=== PATIENT | male | born 1935 | race Caucasian/White ===

== ENCOUNTER 2016-10-07 17:01 | Emergency (ER) | payer MEDICARE, OTHER, BC ==
[~2016-10-07] VITALS: Ht 175.3 cm; Wt 115.0 kg
[2016-10-07 17:14] VITALS: BP 126/86; PULSE 70; RESP 16; TEMP 98; O2SAT 96
--- NOTE | 2016-10-07 17:28 | PD ---
HPI Chief Complaint: Laceration/Skin Injury Time Seen by Provider: 17:20 Travel History International Travel<30 days: No Contact w/Intl Traveler<30days: No Traveled to known affect area: No History of Present Illness HPI 81-year-old male presents for evaluation of skin wounds to the lateral left lower leg. Prior to arrival he walked via piece of wood that had some nails or screw sticking out and a scraped along his leg. He had some bleeding which has since resolved. He has mild discomfort associated with the wound. Last tetanus vaccination unknown. No other complaints. PFSH Social History Alcohol Use: Yes Tobacco Use: No Allergies-Medications (Allergen,Severity, Reaction): Coded Allergies: No Known Allergies (Unverified , 10/07/16) Review of Systems Musculoskeletal: No: Limited ROM, Pain Skin: Positive Other (positive for skin wounds, bleeding) Physical Exam Narrative GENERAL: Well-nourished male in no acute distress SKIN: Warm and dry. There are 2 superficial linear abrasions to the lateral left lower leg. The dermis is intact. No bleeding at this time. Extremities: As noted above. Normal gait. Data Data Last Documented VS Vital Signs Date Time Temp Pulse Resp B/P Pulse Ox O2 Delivery O2 Flow Rate FiO2 10/07/16 17:14 98.0 70 16 126/86 96 MDM Medical Decision Making Medical Screen Exam Complete: Yes Emergency Medical Condition: Yes Medical Record Reviewed: Yes Differential Diagnosis Abrasion, puncture wound, laceration Narrative Course The wounds are superficial, involving only the epidermis. Local wound care provided. Stable for discharge. Diagnosis Primary Impression: Abrasion Additional Instructions: Wash daily with soap and water and apply antibiotic cream and clean bandages. Return for any evidence of infection such as increasing redness around the wound , red streaks up the leg, fevers. Med/Other Pt SpecificInfo: Wound Care Disposition: DISCHARGE HOME Condition: Stable Robert Galvan Oct 07, 2016 17:28
[2016-10-07] MEDS ORDERED: TETANUS/DIPHTHERIA TOXOID ADULT 0.5 ML VIAL IM ONE (17:30)
[2016-10-07] MEDS ORDERED: OMEP10CA PO (17:31)
[2016-10-07] MEDS ORDERED: ATEN25TA PO (17:31)
== END 2016-10-07 17:53 | disposition home or self-care (01) ==
LOC: PHEFT 17:01
DX: S80.812A Abrasion, left lower leg, initial encounter (principal); W45.0XXA Nail entering through skin, initial encounter; Z23 Encounter for immunization
CPT/HCPCS: 90471; 90714

== ENCOUNTER 2016-10-25 11:28 | Emergency (ER) | payer MEDICARE, BC ==
[~2016-10-25] VITALS: Ht 175.3 cm; Wt 113.0 kg
[~2016-10-25 11:28] MED LIST: ATEN25TA PO; OMEP10CA PO
[2016-10-25 11:36] VITALS: BP 118/60; PULSE 61; RESP 16; TEMP 97.6; O2SAT 98
--- NOTE | 2016-10-25 11:44 | PD ---
HPI . leg infection Chief Complaint: Skin Problem Time Seen by Provider: 12:01 Travel History International Travel<30 days: No Contact w/Intl Traveler<30days: No Traveled to known affect area: No History of Present Illness HPI 81-year-old male with history of hypertension and GERD here with complaints of a left leg infection. Patient was previously seen on October 07 and told to follow general wound care practices of washing and dressing changes daily. Patient says he then started developing infection and took some leftover penicillin that he had at home. Patient was concerned as he had left knee replacement in January 2016 and did not want his hardware to become infected. He has since ran out of penicillin tells me that the infection is returning. He decided to come to the emergency room for further evaluation. Denies any fever or chills. He is accompanied by his . PFSH Past Medical History GERD: Yes Hypertension: Yes Social History Alcohol Use: Yes Tobacco Use: No Allergies-Medications (Allergen,Severity, Reaction): Coded Allergies: No Known Allergies (Unverified , 10/25/16) Reported Meds & Prescriptions Reported Meds & Active Scripts Active Reported Omeprazole 10 Mg Cap 10 Mg PO DAILY Atenolol 25 Mg Tab 25 Mg PO DAILY Review of Systems General / Constitutional: No: Fever Eyes: No: Visual changes HENT: No: Headaches Cardiovascular: No: Chest Pain or Discomfort Respiratory: No: Shortness of Breath Gastrointestinal: No: Abdominal Pain Genitourinary: No: Dysuria Musculoskeletal: No: Pain Skin: Positive Other (left leg cellulitis), No Rash Neurologic: No: Weakness Psychiatric: No: Depression Endocrine: No: Polydipsia Hematologic/Lymphatic: No: Easy Bruising Physical Exam Narrative GENERAL: AAO x 3, no acute distress, Well-nourished, well-developed patient. SKIN: Warm and dry. No visible rashes or bruising. left lateral mcmahon with healing skin abrasion with some surrounding erythema and minimally warm to touch HEAD: Normocephalic and atraumatic. EYES: No scleral icterus. No injection or drainage. ENT: No nasal drainage noted. Mucous membranes pink. Airway patent. NECK: Supple, trachea midline. No JVD. CARDIOVASCULAR: Regular rate and rhythm without murmurs, gallops, or rubs. RESPIRATORY: Breath sounds equal bilaterally. No accessory muscle use. No rhonchi or rales. GASTROINTESTINAL: Abdomen soft, non-tender, nondistended. EXTREMITIES: No cyanosis, mild trace edema L BACK: Nontender without obvious deformity. No CVA tenderness. PSYCH: AAO x 3, normal affect. Data Data Last Documented VS Vital Signs Date Time Temp Pulse Resp B/P Pulse Ox O2 Delivery O2 Flow Rate FiO2 10/25/16 11:36 97.6 61 16 118/60 98 MDM Medical Decision Making Medical Screen Exam Complete: Yes Emergency Medical Condition: Yes Medical Record Reviewed: Yes Differential Diagnosis cellulitis, healing skin abrasion, less likely sepsis Narrative Course 81-year-old male with history of hypertension and GERD here with complaints of a left leg infection. Patient was previously seen on October 07 and told to follow general wound care practices of washing and dressing changes daily. Patient says he then started developing infection and took some leftover penicillin that he had at home. Patient was concerned as he had left knee replacement in January 2016 and did not want his hardware to become infected. He has since ran out of penicillin tells me that the infection is returning. He decided to come to the emergency room for further evaluation. Denies any fever or chills. He is accompanied by his . Patient seen and examined. He has very minimal erythema and temperature variation over the left lower extremity wound. I will go ahead and treat with Bactrim and Bactroban. Discussed with patient. Advised to return to the emergency room if symptoms worsen. Patient verbalized understanding of instructions, questions were answered, and thanked me for their care. I advised them if their condition worsens, please return to the nearest emergency room for further care. Diagnosis Primary Impression: Left leg cellulitis Patient Instructions: Cellulitis (ED), General Instructions Additional Instructions: [place] for worsening signs of infection which include increased redness, increased warmth, purulent drainage, increased swelling or streaking. If you see any signs of worsening infection, return to the nearest emergency department or follow-up with primary care provider. Please return to emergency department if your symptoms return or worsen. Follow up with your primary care provider. Take medications as prescribed. Med/Other Pt SpecificInfo: Prescription(s) given Disposition: DISCHARGE HOME Condition: Stable Karo Mata Oct 25, 2016 11:44
[2016-10-25] MEDS ORDERED: BACT2OIN TOPICAL (12:08)
[2016-10-25] MEDS ORDERED: BACT800T5 PO (12:08)
== END 2016-10-25 12:52 | disposition home or self-care (01) ==
LOC: PHEFT 11:28
DX: L03.116 Cellulitis of left lower limb (principal)
CPT/HCPCS: 99284

== ENCOUNTER 2016-11-12 13:26 | Emergency (ER) | payer MEDICARE, BC, OTHER ==
[~2016-11-12 13:26] MED LIST changes: +BACT2OIN TOPICAL; +BACT800T5 PO
[2016-11-12 13:33] VITALS: BP 123/74; PULSE 66; RESP 16; TEMP 97.6; O2SAT 96
[2016-11-12] MEDS ORDERED: CLINDAMYCIN INJ 900 MG in SODIUM CHLORIDE 0.9% INJ 100 ML IV ONE (14:00)
[2016-11-12 14:21] LABS: BASOPHIL % 0.5 % (0.0-2.0); EOSINOPHIL # 0.2 TH/MM3 (0-0.4); EOSINOPHIL % 2.9 % (0.0-4.0); HEMO FLAGS DIFF FINAL; LYMPH % 25.1 % (9.0-44.0); LYMPHOCYTE # 1.6 TH/MM3 (1.0-4.8); MEAN CELL VOLUME 90.9 FL (80.0-100.0); MEAN CORPUSCULAR HEMOGLOBIN 30.1 PG (27.0-34.0); MEAN CORPUSCULAR HGB CONC 33.1 % (32.0-36.0); NEUT % 64.5 % (16.0-70.0); PLATELET COUNT 186 TH/MM3 (150-450); RED BLOOD COUNT 4.62 MIL/MM3 (4.50-5.90); RED CELL DISTRIBUTION WIDTH 13.1 % (11.6-17.2); WHITE BLOOD COUNT 6.2 TH/MM3 (4.0-11.0)
--- NOTE | 2016-11-12 14:35 | RADHPO ---
EXAM DATE/TIME: 11/12/2016 14:05 [facility] COMPARISON: No previous studies available for comparison. INDICATIONS : Cut lower leg October 07. Third visit. Patient still complaining of pain. MEDICAL HISTORY : Hypertension. Gastroesophageal reflux disease. SURGICAL HISTORY : Total knee replacement, left. Total knee replacement, right. ENCOUNTER: [facility] ACUITY: 2 months PAIN SCORE: 7/10 LOCATION: Left lateral Tibia Fibula FINDINGS: Left total knee arthroplasty is noted. No soft tissue emphysema, fracture or dislocation. No perioste al reaction. CONCLUSION: No acute disease. Fran Metz MD on November 12, 2016 at 14:33 Board Certified Radiologist. This report was verified electronically.
[2016-11-12 14:41] LABS: POTASSIUM 4.5 MEQ/L (3.5-5.1)
[2016-11-12 14:45] LABS: BICARBONATE 27.1 MEQ/L (21.0-32.0)
[2016-11-12 14:46] VITALS: BP 120/64; PULSE 57; RESP 18; O2SAT 97
--- NOTE | 2016-11-12 14:52 | RADHPO ---
EXAM DATE/TIME: 11/12/2016 14:29 [facility] COMPARISON: No previous studies available for comparison. INDICATIONS : Left lateral lower leg pain from injury October 07, 2016. MEDICAL HISTORY : Gastroesophageal reflux disease. SURGICAL HISTORY : Total knee replacement, left. Total knee replacement, right. ENCOUNTER: Initial ACUITY: 2 months PAIN SCORE: 7/10 LOCATION: Left leg. TECHNIQUE: Venous ultrasound of the leg was performed from the inguinal ligament to the proximal calf. Real-penelope e, color Doppler and spectral tracing, compression and augmentation techniques were used. FINDINGS: There is normal compressibility of the deep venous system from the inguinal region to the proximal ca lf. No echogenic clot is seen in the lumen of the common femoral, femoral, popliteal, and posterior tibial veins. There is a normal response of the venous system to proximal and distal augmentation an d respiration. CONCLUSION: Normal examination. Fran Metz MD on November 12, 2016 at 14:50 Board Certified Radiologist. This report was verified electronically.
[2016-11-12] MEDS ORDERED: CLIN1CAP5 PO (15:18)
--- NOTE | 2016-11-12 15:19 | PD ---
HPI Chief Complaint: Pain: Acute or Chronic Time Seen by Provider: 13:38 Travel History International Travel<30 days: No Contact w/Intl Traveler<30days: No Traveled to known affect area: No History of Present Illness HPI 81-year-old male arrives to the ER with pain in the lower left leg. About 6 weeks ago he cut it on a nail and some drywall in his garage. He has been here 2 times since the initial visit. He reports severe pain overlying the area of dried blood and scabbing. He finished a course of Bactrim. His main concern is the pain seems to be traveling approximately into the region of the left total knee arthroplasty. He's had no fever. He said no shortness of breath. Pain is worse with pressure. PFSH Past Medical History Diminished Hearing: Yes GERD: Yes Hypertension: Yes Immunizations Current: Yes Tetanus Vaccination: < 5 Years Influenza Vaccination: Yes Social History Alcohol Use: Yes (WINE DAILY) Tobacco Use: No (QUIT 1982) Substance Use: No Allergies-Medications (Allergen,Severity, Reaction): Coded Allergies: No Known Allergies (Unverified , 11/12/16) Reported Meds & Prescriptions Reported Meds & Active Scripts Active Clindamycin (Clindamycin HCl) 150 Mg Cap 450 Mg PO Q8HR 10 Days Reported Omeprazole 10 Mg Cap 10 Mg PO DAILY Atenolol 25 Mg Tab 25 Mg PO DAILY Review of Systems Except as stated in HPI: all other systems reviewed are Neg General / Constitutional: No: Fever Physical Exam Narrative GENERAL: 81 yo M, WNWD SKIN: Warm and dry. Approx 5cm x 1cm curvilinear laceration LLE minimally tender , trace adjacent erythema. HEAD: Atraumatic. Normocephalic. EYES: Pupils equal and round. No scleral icterus. No injection or drainage. ENT: No nasal bleeding or discharge. Mucous membranes pink and moist. NECK: Trachea midline. No JVD. CARDIOVASCULAR: Regular rate and rhythm. RESPIRATORY: No accessory muscle use. Clear to auscultation. Breath sounds equal bilaterally. GASTROINTESTINAL: Abdomen soft, non-tender, nondistended. Hepatic and splenic margins not palpable. MUSCULOSKELETAL: Extremities without clubbing, cyanosis, or edema. No obvious deformities. NEUROLOGICAL: Awake and alert. No obvious cranial nerve deficits. Motor grossly within normal limits. Five out of 5 muscle strength in the arms and legs. Normal speech. PSYCHIATRIC: Appropriate mood and affect; insight and judgment normal. Data Data Last Documented VS Vital Signs Date Time Temp Pulse Resp B/P Pulse Ox O2 Delivery O2 Flow Rate FiO2 11/12/16 14:46 57 18 120/64 97 Room Air 11/12/16 13:33 97.6 VS reviewed Orders Basic Metabolic Panel (Bmp) (11/12/16 13:52) Complete Blood Count With Diff (11/12/16 13:52) Wound Culture And Gram Stain (11/12/16 13:52) Iv Access Insert/Monitor (11/12/16 13:52) Clindamycin Inj (Cleocin Inj) (11/12/16 14:00) Us Leg Venous Doppler (11/12/16 ) Tibia/Fibula (Ap/Lat) (11/12/16 ) Labs Laboratory Tests Test 11/12/16 14:05 White Blood Count 6.2 TH/MM3 Red Blood Count 4.62 MIL/MM3 Hemoglobin 13.9 GM/DL Hematocrit 42.0 % Mean Corpuscular Volume 90.9 FL Mean Corpuscular Hemoglobin 30.1 PG Mean Corpuscular Hemoglobin 33.1 % Concent Red Cell Distribution Width 13.1 % Platelet Count 186 TH/MM3 Mean Platelet Volume 8.9 FL Neutrophils (%) (Auto) 64.5 % Lymphocytes (%) (Auto) 25.1 % Monocytes (%) (Auto) 7.0 % Eosinophils (%) (Auto) 2.9 % Basophils (%) (Auto) 0.5 % Neutrophils # (Auto) 4.0 TH/MM3 Lymphocytes # (Auto) 1.6 TH/MM3 Monocytes # (Auto) 0.4 TH/MM3 Eosinophils # (Auto) 0.2 TH/MM3 Basophils # (Auto) 0.0 TH/MM3 CBC Comment DIFF FINAL Differential Comment Sodium Level 145 MEQ/L Potassium Level 4.5 MEQ/L Chloride Level 111 MEQ/L Carbon Dioxide Level 27.1 MEQ/L Anion Gap 7 MEQ/L Blood Urea Nitrogen 20 MG/DL Creatinine 1.20 MG/DL Estimat Glomerular Filtration 58 ML/MIN Rate Random Glucose 85 MG/DL Calcium Level 8.8 MG/DL [facility] Medical Decision Making Medical Screen Exam Complete: Yes Emergency Medical Condition: Yes Medical Record Reviewed: Yes Differential Diagnosis Cellulitis, DVT, foreign body, sepsis Narrative Course CBC & BMP Diagram 11/12/16 14:05 Last 24 hours Impressions Tibia/Fibula X-Ray 11/12/16 0000 Signed Impressions: Service Date/Time: Saturday, November 12, 2016 14:05 - CONCLUSION: No acute disease. Fran Metz MD Lower Extremity Ultrasound 11/12/16 0000 Signed Impressions: Service Date/Time: Saturday, November 12, 2016 14:29 - CONCLUSION: Normal examination. Fran Metz MD The patient is resting comfortably and feels better, is alert and in no distress. The patients results and examination findings were discussed. The repeat examination is unremarkable and benign. The history, exam, diagnostic testing, and current condition do not suggest any significant pathology to warrant further testing, continued ED treatment, admission, or surgical evaluation at this point. The vital signs have been stable. The patient does not have uncontrollable pain, intractable vomiting, or other significant symptoms. The patient's condition is stable and appropriate for discharge. The patient will pursue further outpatient evaluation with a primary care physician or other designated or consulting physician as indicated in the discharge instructions. The patient expressed understanding and was agreeable with this plan. Diagnosis Primary Impression: Left leg cellulitis Referrals: Cherry Trimble MD 2 days Additional Instructions: You have a choice when it comes to health care, and we are glad that you chose [facility]. Hopefully, we have met your expectations on today's visit. You are welcome to return to [facility] at any time, as we are committed to meeting the health care needs of our community. Med/Other Pt SpecificInfo: Prescription(s) given Scripts Clindamycin 150 Mg [id number] Mg PO Q8HR 10 Days Ref 0 Prov:Thony Burton MD 11/12/16 Disposition: 01 DISCHARGE HOME Condition: Stable Thony Burton MD Nov 12, 2016 15:19
== END 2016-11-12 15:44 | disposition home or self-care (01) ==
LOC: PHED 13:26
DX: L03.116 Cellulitis of left lower limb (principal); M79.662 Pain in left lower leg; S81.812D Laceration without foreign body, left lower leg, subsequent encounter; I10 Essential (primary) hypertension; H91.90 Unspecified hearing loss, unspecified ear; Z96.652 Presence of left artificial knee joint; Z87.19 Personal history of other diseases of the digestive system; W45.0XXD Nail entering through skin, subsequent encounter
CPT/HCPCS: 73590; 80048; 85025; 86403; 87070; 87205; 93971; 96365

== ENCOUNTER 2017-09-04 08:11 | Inpatient (IN) | payer MEDICARE, BC, OTHER ==
[2017-09-04] VITALS (16 sets, daily range): BP systolic 102–180; BP diastolic 53–111; PULSE 47–76; RESP 20–26; TEMP 98.2–98.8; O2SAT 96–100
[~2017-09-04] VITALS: Ht 175.3 cm; Wt 113.0 kg
[~2017-09-04 08:11] MED LIST changes: -BACT2OIN TOPICAL; -BACT800T5 PO; +CLIN150C14 PO
[2017-09-04] MEDS ORDERED: HEPARIN SODIUM - IV 10,000 UNITS/10 ML VIAL IV PUSH STA (08:19)
[2017-09-04] MEDS ORDERED: SODIUM CHLOR 0.9% 1000 ML INJ 1,000 ML IV ONE (08:19)
[2017-09-04] MEDS ORDERED: NITROGLYCERIN 0.4 MG SL 25 TABS/BTL SL STA (08:19)
[2017-09-04] MEDS ORDERED: ASPIRIN 81 MG CHEW TAB PO STA (08:19)
[2017-09-04] MEDS: SODIUM CHLOR 0.9% 1000 ML INJ 1,000 ML IV SCH ×2 (08:23→13:48)
[2017-09-04] MEDS ORDERED: MIDAZOLAM HCL 2 MG/2 ML VIAL ONE (08:28)
[2017-09-04] MEDS ORDERED: HEPARIN-NS/PF INJ 1,000 ML ONE (08:28)
[2017-09-04] MEDS ORDERED: MORPHINE SULFATE 2 MG/ML INJ IV PUSH ONE (08:30)
[2017-09-04] MEDS ORDERED: SODIUM CHLORIDE 0.9% FLUSH 10 ML FLUSH IV FLUSH PRN (08:30)
[2017-09-04] MEDS ORDERED: NITROGLYCERIN-D5W 50 MG/250 ML 250 ML IV PRN (08:30)
[2017-09-04] MEDS ORDERED: FAMOTIDINE 20 MG/2 ML VIAL IV PUSH ONE (08:30)
[2017-09-04] MEDS ORDERED: ONDANSETRON HCL 4 MG/2 ML VIAL IVP ONE (08:30)
[2017-09-04] MEDS ORDERED: SODIUM CHLORIDE 0.9% FLUSH 10 ML FLUSH IVF PRN (08:30)
--- NOTE | 2017-09-04 08:35 | PD ---
HPI Chief Complaint: Cardiac Complaint Time Seen by Provider: 08:17 Travel History International Travel<30 days: No Contact w/Intl Traveler<30days: No Traveled to known affect area: No History of Present Illness HPI 82-year-old male complains of chest pain. Patient states that he started having epigastric and subxiphoid chest pain around an hour and a half prior to arrival. Patient states the pain severe pain sharp pain and pressure pain started around epigastric area with radiation to the substernal area. Patient complained of nausea and diaphoresis with the pain. Patient denies any coughing congestion fever chills. EMS was called. Patient had a short period of bradycardia and hypotension. Patient was transferred to the ED for evaluation. Upon arrival patient awake and alert oriented 3. Complaining of severe substernal and epigastric pain. Patient has history hypertension and pancreatitis. Patient denies history diabetes or hyperlipidemia. Patient states that he had cardiac catheter done several years in the past which shows some minor blockage. Patient is a nonsmoker. On a scale of 1-10 the pain is a 10. PFSH Past Medical History Diminished Hearing: Yes GERD: Yes Hypertension: Yes Immunizations Current: Yes ?: Not Past Surgical History Other Surgery: Yes (PANCREAS SX) Social History Alcohol Use: Yes ([facility]) Tobacco Use: No (QUIT 1982) Substance Use: No Allergies-Medications (Allergen,Severity, Reaction): Coded Allergies: No Known Allergies (Unverified , 11/12/16) Reported Meds & Prescriptions Reported Meds & Active Scripts Active Clindamycin (Clindamycin HCl) 150 Mg Cap 450 Mg PO Q8HR 10 Days Reported Omeprazole 10 Mg Cap 10 Mg PO DAILY Atenolol 25 Mg Tab 25 Mg PO DAILY Review of Systems General / Constitutional: No: Fever Eyes: No: Visual changes HENT: No: Headaches Cardiovascular: Positive: Chest Pain or Discomfort Respiratory: No: Shortness of Breath Gastrointestinal: Positive: Abdominal Pain Genitourinary: No: Dysuria Musculoskeletal: No: Pain Skin: No Rash Neurologic: No: Weakness Psychiatric: No: Depression Endocrine: No: Polydipsia Hematologic/Lymphatic: No: Easy Bruising Physical Exam Narrative GENERAL: Well-nourished, well-developed patient. SKIN: Focused skin assessment warm/dry. HEAD: Normocephalic. EYES: No scleral icterus. No injection or drainage. NECK: Supple, trachea midline. No JVD or lymphadenopathy. CARDIOVASCULAR: Regular rate and rhythm without murmurs, gallops, or rubs. RESPIRATORY: Breath sounds equal bilaterally. No accessory muscle use. GASTROINTESTINAL: Abdomen soft, nondistended. Mild tenderness on palpation epigastric area. No rebound tenderness. No mass. MUSCULOSKELETAL: No cyanosis, or edema. BACK: Nontender without obvious deformity. No CVA tenderness. Neurologic exam normal. Data Data Last Documented VS Vital Signs Date Time Temp Pulse Resp B/P (MAP) Pulse Ox O2 Delivery O2 Flow Rate FiO2 09/04/17 08:20 22 99 Nasal Cannula 2.00 09/04/17 08:14 72 180/111 (134) Orders Orders Complete Blood Count With Diff (09/04/17:17) Comprehensive Metabolic Panel (09/04/17 08:17) Lipase (09/04/17 08:17) Prothrombin Time / Inr (Pt) (09/04/17 08:17) Act Partial Throm Time (Ptt) (09/04/17 08:17) Urinalysis - C+S If Indicated (09/04/17 08:17) Iv Access Insert/Monitor (09/04/17 08:17) Ecg Monitoring (09/04/17 08:17) Oximetry (09/04/17 08:17) Ondansetron Inj (Zofran Inj) (09/04/17 08:30) Sodium Chlor 0.9% 1000 Ml Inj (Ns 1000 M (09/04/17 08:17) Sodium Chloride 0.9% Flush (Ns Flush) (09/04/17 08:30) Electrocardiogram (09/04/17 08:17) Famotidine Inj (Pepcid Inj) (09/04/17 08:30) Morphine Inj (Morphine Inj) (09/04/17 08:30) Troponin I (09/04/17 08:19) Ckmb (Isoenzyme) Profile (09/04/17 08:19) I-Stat Profile (09/04/17 08:19) I-Stat Creatinine (09/04/17:19) Calcium (09/04/17 08:19) Magnesium (Mg) (09/04/17 08:19) Chest, Single Ap (09/04/17 08:19) Oxygen Administration (09/04/17 08:19) Sodium Chlor 0.9% 1000 Ml Inj (Ns 1000 M (09/04/17 08:19) Sodium Chloride 0.9% Flush (Ns Flush) (09/04/17 08:30) Aspirin Chew (Aspirin Chew) (09/04/17 08:19) Nitroglycerin Sl (Nitrostat Sl) (09/04/17 08:19) Nitroglycerin-D5w 50 Mg/250 Ml (Nitrogly (09/04/17 08:30) Heparin Inj (Heparin Inj) (09/04/17 08:19) Cardiac Catheterization (09/04/17 ) MDM Medical Decision Making Medical Screen Exam Complete: Yes Emergency Medical Condition: Yes Differential Diagnosis Differential diagnosis including acute NC, gastritis, pancreatitis, esophagitis , angina, PE, pneumothorax, aortic dissection. Narrative Course 82-year-old male with severe epigastric and substernal chest pain. Patient has a transient episode of hypotension and bradycardia. Vital signs stable now. EKG showed ST elevation in inferior leads with T-wave inversion on anterior leads. STEMI alert was called. I spoke with renal dialysis rn . Patient was given heparin bolus, aspirin, nitroglycerin, and transferred emergently to Historical Records Administrator. Diagnosis Primary Impression: STEMI (ST elevation myocardial infarction) Qualified Codes: I21.11 - ST elevation (STEMI) myocardial infarction involving right coronary artery Admitting Information Admitting Physician Requests: Admit Arnold Altman MD Sep 04, 2017 08:35
--- NOTE | 2017-09-04 08:44 | RADRPT ---
EXAM DATE/TIME: 09/04/2017 08:24 [facility] COMPARISON: No previous studies available for comparison. INDICATIONS : Chest pains, radiating into back, jaw, shoulder. MEDICAL HISTORY : None. SURGICAL HISTORY : None. ENCOUNTER: Initial ACUITY: 1 day PAIN SCORE: 10/10 LOCATION: Bilateral chest FINDINGS: A single view of the chest demonstrates the lungs to be symmetrically aerated without evidence of mas s, infiltrate or effusion. The cardiomediastinal contours are unremarkable. Osseous structures are intact. CONCLUSION: 1. No acute cardiopulmonary disease. Santosh Boothe MD on September 04, 2017 at 8:39 Board Certified Radiologist. This report was verified electronically.
[2017-09-04 08:46] LABS: AUTOMATED NEUTROPHIL # 5.2 TH/MM3 (1.8-7.7); BASOPHIL # 0.1 TH/MM3 (0-0.2); BASOPHIL % 0.6 % (0.0-2.0); EOSINOPHIL # 0.2 TH/MM3 (0-0.4); EOSINOPHIL % 2.4 % (0.0-4.0); HEMOGLOBIN 15.3 GM/DL (13.0-17.0); LYMPH % 36.7 % (9.0-44.0); LYMPHOCYTE # 3.5 TH/MM3 (1.0-4.8); MEAN CELL VOLUME 91.5 FL (80.0-100.0); MEAN CORPUSCULAR HEMOGLOBIN 31.7 PG (27.0-34.0); MEAN CORPUSCULAR HGB CONC 34.6 % (32.0-36.0); MEAN PLATELET VOLUME 8.9 FL (7.0-11.0); MONO % 6.4 % (0.0-8.0); MONOCYTE # 0.6 TH/MM3 (0-0.9); NEUT % 53.9 % (16.0-70.0); PLATELET COUNT 207 TH/MM3 (150-450); RED BLOOD COUNT 4.82 MIL/MM3 (4.50-5.90); WHITE BLOOD COUNT 9.6 TH/MM3 (4.0-11.0)
[2017-09-04] MEDS ORDERED: BIVALIRUDIN 250 MG VIAL ONE (08:53)
[2017-09-04 08:54] LABS: PROTHROMBIN TIME - PATIENT 10.1 SEC (9.8-11.6)
[2017-09-04 09:08] LABS: ALT (GPT) 26 U/L (12-78)
[2017-09-04 09:10] LABS: ALBUMIN 3.5 GM/DL (3.4-5.0); ALKALINE PHOSPHATASE 69 U/L (45-117); AST (GOT) 24 U/L (15-37); BICARBONATE 22.3 MEQ/L (21.0-32.0); BLOOD UREA NITROGEN 23 MG/DL (7-18); CALCIUM 9.6 MG/DL (8.5-10.1); CHLORIDE 108 MEQ/L (98-107); CREATININE 1.54 MG/DL (0.60-1.30); GLOMERULAR FILTRATION RATE 44 ML/MIN (>89); GLUCOSE,RANDOM 120 MG/DL (74-106); SODIUM (NA) 138 MEQ/L (136-145); TOTAL BILIRUBIN ADULT 0.3 MG/DL (0.2-1.0); TOTAL PROTEIN 6.8 GM/DL (6.4-8.2)
[2017-09-04 09:14] LABS: TROPONIN I LESS THAN 0.02 NG/ML (0.02-0.05)
[2017-09-04 09:18] LABS: MAGNESIUM 1.8 MG/DL (1.5-2.5)
[2017-09-04] MEDS ORDERED: BIVALIRUDIN INJ 250 MG in SODIUM CHLORIDE 0.9% INJ 50 ML IV SCH (09:28)
[2017-09-04] MEDS ORDERED: NITROGLYCERIN 400 MCG/SPRAY 4.9 GM BOTTLE SL ONE (09:30)
[2017-09-04] MEDS ORDERED: LIDOCAINE 2% JELLY 30 ML TUBE TOP PRN (09:30)
[2017-09-04] MEDS ORDERED: oxyCODONE/ACETAMINOPHEN 10 MG/325 MG TAB PO PRN (09:30)
[2017-09-04] MEDS ORDERED: MORPHINE SULFATE 4 MG/ML INJ IV PUSH PRN (09:30)
[2017-09-04] MEDS ORDERED: BACITRACIN OINT 0.9 GM PKT TOP ONE (09:30)
[2017-09-04] MEDS ORDERED: MISC INFORMATION XX ONE (09:30)
[2017-09-04] MEDS ORDERED: CLOPIDOGREL 300 MG TAB ONE (09:30)
[2017-09-04] MEDS ORDERED: SODIUM CHLOR 0.9% 1000 ML INJ 1,000 ML IV SCH (09:40)
[2017-09-04] MEDS ORDERED: cloNIDine HCL 0.1 MG TAB PO PRN (09:45)
--- NOTE | 2017-09-04 09:46 | CATHPROC ---
[employer] HIS Report Study Information Study Number Admission Scheduled Start Study Start [id number] Sep 04 2017 8:11AM 09/04/2017 Sep 04 2017 8:31AM [place] [facility] Cardiac Catheterization Admit Source Facility Department Emergency department [facility] - Mortuary Operations Manager Physician and Clinical Staff Initial Esdras Hartmann Agricultural Engineering Technologist Martinez Call,MIKA Recorder Brooke Harvey,RT(R) (BS) Scrub Robbi Sheridan RCIS(BS) Procedures Performed Procedure Location (Site) Vessel Name Coronary Angiograms LCA Left Coronary Coronary Angiograms RCA Right Coronary PTCA CIRC Prox CIRC PTCA OM1 Prox CIRC Stent CIRC Prox CIRC Wire insertion Radial (right) Radial Art. Equipment Time Cut Out And Marking Machine Operator Description Size Mfg Part Number Used/Scraped COPILOT VALVE, BLEEDBACK [id number] 08:49 [employer] Used CONTROL *[id number] TRANSDUCER, TRUWAVE [id number] 08:49 MARQUEZ LUCERO * Used W/STOCKCOCK *[id number] *[id number] *[id number] *[id number] *[id number] *[id number] 08:49 [employer] INDUSTRIES PACK, CCL CUSTOM * Used *[id number] 08:49 [employer] PACER PEN, SKIN DUAL W/ RULER * Used *[id number] 09:07 MEDTRON[employer] BALLOON, 2.0 X 10MM EUPHORA 10MM Used *[id number] 08:54 [employer]TRON[employer] BALLOON, 2.5 X 12MM EUPHORA 12MM Used *[id number] 09:09 MEDTRONIC STENT, 2.5 18 INTEGRITY 2.5 18 Used *[id number] 09:01 [facility] MEDICAL 30 PATRICE INDEFLATOR Used *[id number] BAND, RADIAL COMPRESSION TR [id number] 09:25 [facility] MEDICAL 29CM Used LARGE 29 *[id number] 08:49 [facility] MEDICAL SHEATH, FR6.5 PRELUDE 11CM FR 6.5 038ACT Used *[id number] 08:49 [employer] WIRE, 3MMJ .035 180CM 180CM Used *[id number] 08:49 [employer]AM[employer] MANIFOLD, 4 PORT * Used *[id number] 08:49 [employer] OMNIPAQUE, 350 MG, 150ML 150ML [id number] Used [id number] 08:49 [employer] BLANKET,WARM AIR CCL * Used *[id number] WIRE, RUNTHROUGH NS FLOPPY 08:51 [employer] 180CM Used .014 180CM *[id number] WIRE, RUNTHROUGH NS FLOPPY 09:03 [employer] 180CM Used .014 180CM *[id number] Equipment Model, Serial, Lot Number and Expiration Data Description Model Number Serial Number Lot Number Expiration Date STENT, 2.5 18 INTEGRITY [id number] 01-16-2019 History: Current Medications Medication Dosage/Unit Route Frequency Last Date/Time Taken ASA HEPARIN History: Allergies Allergy Reaction No Known Allergies History: Risk Factors Family History of Hypertension Dyslipidemia Previous ME Previous Heart Failure Premature CAD No No No No No Prior Valve Prior PCI Prior CABG Surgery No No No Cerebrovascular Peripheral Artery Chronic Lung On Dialysis Diabetes Disease Disease Disease No No No No No History: Symptoms/Diagnosis Selection Items Chest pain History: Stress Tests Stress or Imaging Studies Performed No History: Other Current Smoker Method Quit Packs a Day Years Used Pack Years No Cigarettes 25 Years Ago 1 30 30 Labs Hgb (g/dl) Hct (%) RBC (MIL/MM3) WBC (l/cumm) Platelets (thousands) 11.60-17.00 35.00-51.00 4.00-5.90 4.00-11.00 150.00-450.00 15.3 44 4.8 9.6 207 Glucose (mg/dl) BUN (mg/dl) Creatinine (mg/dl) BUN:Creatinine (1:x) 74.00-106.00 7.00-18.00 0.50-1.30 10.00-20.00 120 29 1.5 19.3 Na (meq/l) K (meq/l) Cl (meq/l) 136.00-145.00 3.50-5.10 98.00-107.00 141 4.5 106 INR (PTT:PT) 0.90-1.10 1 Medication Medication Total Dose (Bolus/Oral) Medication Total Dosage/Unit 1% XYLOCAINE 1 mL ANGIOMAX BOLUS 16.8 mL FENTANYL 50 mcg NITROGLYCERIN S/L 0.4 mg NTG (IC) 200 mcg OXYGEN 2 l/min PLAVIX 600 mg VERSED 2 mg Medications (Bolus/Oral) Medication Time Given Dosage/Unit Administered By Reason 1% XYLOCAINE 09/04/2017 8:48:19 AM 1 mL Esdras Serna 1 mL 1% XYLOCAINE given in lab by Esdras Serna in Right Radial via Subcutaneous. VERSED 09/04/2017 8:48:34 AM 1 mg Esdras Serna 1 mg VERSED given in lab by Esdras Serna via Peripheral IV. FENTANYL 09/04/2017 8:48:34 AM 50 mcg Esdras Serna 50 mcg FENTANYL given in lab by Esdras Serna via Peripheral IV. ANGIOMAX BOLUS 09/04/2017 8:55:52 AM 16.8 mL Martinez Call 16.8 mL ANGIOMAX BOLUS given in lab by Martinez Call RN in Left Forearm via Peripheral IV. OXYGEN 09/04/2017 9:02:35 AM 2 l/min Martinez Call 2 l/min OXYGEN given in lab by Martinez Call RN via Nasal. NTG (IC) 09/04/2017 9:14:51 AM 200 mcg Esdras Serna 200 mcg NTG (IC) given in lab by Esdras Serna in Right Radial via Intra-coronary. VERSED 09/04/2017 9:25:27 AM 1 mg Martinez Call 1 mg VERSED given in lab by Martinez Call RN in Left Forearm via Peripheral IV. NITROGLYCERIN S/L 09/04/2017 9:32:23 AM 0.4 mg Esdras Serna 0.4 mg NITROGLYCERIN S/L given in lab by Esdras Serna via Sublingual. PLAVIX 09/04/2017 9:43:11 AM 600 mg Martinez Call 600 mg PLAVIX given in lab by Martinez Call RN via Oral. Medication (Drip) Medication Time Given Dosage/Unit Concentration/Unit Diluent (ml) Solution ANGIOMAX DRIP 09/04/2017 8:57:43 AM 1.75 mg/kg/hr 250 mg 50 NaCl .9 1.75 mg/kg/hr ANGIOMAX DRIP given in lab by Martinez Call RN in Left Forearm via Peripheral IV. Pum p/Drip Flow = 39.2 ml/hr using NaCl .9 with a concentration of 250 mg in 50 ml. IV Solutions 09/04/2017 8:46:01 AM 50 mL (IV) 1000 NaCl .9 Patient arrived on IV Solutions in Left Forearm via Peripheral IV. Pump/Drip Flow using NaCl .9. Initial Case Assessment Chronological Log Time Study Chronological Log 8:25:53 Emergency Room notified that Mortuary Operations Manager is ready. 8:36:53 Patient arrived via Bed. 8:36:54 Patient Name, D.O.B, / Armband Verified By R.N. 8:36:55 Consent signed by the physician and the patient and verified by the Mortuary Operations Manager staff. 8:36:56 Pre-op and post- op instructions given; patient acknowledges understanding of instructions. Vitals capture started with the following parameters, Patient=Adult, Interval=5 min, Initial Pre emrzl=155 mmHg, 8:40:27 Deflation Rate=5 mmHg, Cuff placed on Left Arm 8:42:08 MD arrived. 8:42:46 HR=72 bpm, KOFQ=246/118 mmhg, Resp=16 B/min, Pain=8, Trell=10, Headley=2 8:45:46 Verbal Stimulation=2 Physical Stimulation=2 Airway=2 Respiration=2 TOTAL=8. (0=absent, 1=orosco ited, 2=present) 8:45:47 Presedation assessment performed by Mortuary Operations Manager RN. 8:45:49 Allens test performed on the right radial and ulnar artery. 8:45:57 Patient Warmer Placed on the Table. 8:45:58 Disposable Defibrillator Pads Placed On Patient. 8:45:59 Sophia Prominences Protected 8:46:00 A # 18 IV was noted in the Forearm (right). Grade = 0 8:46:00 A # 18 IV was noted in the Forearm (left). Grade = 0 8:46:01 Patient arrived on IV Solutions in Left Forearm via Peripheral IV. Pump/Drip Flow using NaCl .9. 8:46:02 History and physical on the chart or being dictated. 8:46:04 Assessment: Initial Case 8:46:15 HR=70 bpm, QGMW=503/130 mmhg, SpO2=94.0 %, Resp=21 B/min Time Out. Correct patient, correct procedure, correct physician, power injector not loaded with contrast with surgical 8:46:45 team present. Time Out Concurred by MD and individual staff in procedure. 8:46:53 Case Start 8:47:36 Reference ECG taken 8:48:19 1 mL 1% XYLOCAINE given in lab by Esdras Serna in Right Radial via Subcutaneous. 8:48:34 1 mg VERSED given in lab by Esdras Serna via Peripheral IV. 8:48:34 50 mcg FENTANYL given in lab by Esdras Serna via Peripheral IV. 8:48:44 Access site was right Radial Artery. 8:48:57 A SHEATH, FR6.5 PRELUDE 11CM FR 6.5 was advanced into the Radial (right) using the Percutane ous technique. 8:49:26 Pressure channel 1 zeroed. 8:49:31 In the Radial (right) the SHEATH, FR6.5 PRELUDE 11CM FR 6.[address] by Lisbeth Serna. A JL 3.5 INFINITI CATHETER FR 6 was advanced over a wire. OMNIPAQUE, 350 MG, 150ML 150ML was use d for 8:50:50 injections. 8:51:14 HR=75 bpm, RQDN=035/116 mmhg, SpO2=92.0 %, Resp=23 B/min, Pain=8, Trell=10, Headley=2 8:52:02 The LCA was injected and visualized at various angles. OMNIPAQUE, 350 MG, 150ML 150ML used. Recorded Pressure: Ao, HR=68, Condition=Condition 1 8:52:12 (Aorta) Ao 164/100/130 After removing the current catheter a JR 5.0 GUIDE CATHETER FR 6 was advanced over a WIRE, 3MMJ .035 180CM 8:52:40 180CM. 8:55:52 16.8 mL ANGIOMAX BOLUS given in lab by Martinez Call, RN in Left Forearm via Peripheral IV. 8:56:09 HR=73 bpm, ZMAG=748/111 mmhg, SpO2=82.0 %, Resp=18 B/min, Pain=8, Trell=10, Headley=2 8:56:18 The RCA was injected and visualized at various angles. OMNIPAQUE, 350 MG, 150ML 150ML used. 1.75 mg/kg/hr ANGIOMAX DRIP given in lab by Martinez Call, RN in Left Forearm via Peripheral IV . Pump/Drip Flow = 8:57:43 39.2 ml/hr using NaCl .9 with a concentration of 250 mg in 50 ml. After removing the current catheter a AL 1 GUIDE CATHETER FR 6 was advanced over a WIRE, 3MMJ .0 35 180CM 8:57:53 180CM. 8:58:36 A WIRE, RUNTHROUGH NS FLOPPY .014 180CM 180CM was inserted via Radial (right). A BALLOON, 2.5 X 12MM EUPHORA 12MM was inserted over WIRE, RUNTHROUGH NS FLOPPY .014 180CM 180CM via 9:00:48 the Radial (right). A BALLOON, 2.5 X 12MM EUPHORA 12MM over a WIRE, RUNTHROUGH NS FLOPPY .014 180CM 180CM in the CIR C 9:00:58 Prox was inflated using a 30 PATRICE INDEFLATOR at 8 patrice for 25 sec. 9:01:12 HR=69 bpm, CQLF=034/98 mmhg, SpO2=84.0 %, Resp=17 B/min, Pain=8, Trell=10, Headley=2 9:02:35 2 l/min OXYGEN given in lab by Martinez Call, MIKA via Nasal. 9:03:39 A WIRE, RUNTHROUGH NS FLOPPY .014 180CM 180CM was inserted via Radial (right). A BALLOON, 2.0 X 10MM EUPHORA 10MM was inserted over WIRE, RUNTHROUGH NS FLOPPY .014 180CM 180CM via 9:06:15 the OM1 Prox. 9:06:58 HR=59 bpm, ZPTT=030/91 mmhg, SpO2=86.0 %, Resp=17 B/min, Pain=8, Trell=10, Headley=2 A BALLOON, 2.0 X 10MM EUPHORA 10MM over a WIRE, RUNTHROUGH NS FLOPPY .014 180CM 180CM in the OM1 9:07:03 Prox was inflated using a 30 PATRICE INDEFLATOR at 8 patrice for 10 sec. A BALLOON, 2.0 X 10MM EUPHORA 10MM over a WIRE, RUNTHROUGH NS FLOPPY .014 180CM 180CM in the OM1 9:07:35 Prox was inflated using a 30 PATRICE INDEFLATOR at 8 patrice for 10 sec. A BALLOON, 2.0 X 10MM EUPHORA 10MM over a WIRE, RUNTHROUGH NS FLOPPY .014 180CM 180CM in the OM1 9:07:44 Prox was inflated using a 30 PATRICE INDEFLATOR at 8 patrice for 10 sec. 9:08:57 Balloon Removed An STENT, 2.5 18 INTEGRITY 2.5 18 Bare Metal Stent was inserted through a AL 1 GUIDE CATHETER FR 6 over a 9:11:04 WIRE, RUNTHROUGH NS FLOPPY .014 180CM 180CM. 9:11:20 Wire removed 9:11:41 HR=72 bpm, XKRR=743/117 mmhg, SpO2=94.0 %, Resp=18 B/min, Pain=8, Trell=10, Headley=2 A STENT, 2.5 18 INTEGRITY 2.5 18 was deployed using a 30 PATRICE INDEFLATOR at 16 atmospheres for 10 seconds in 9:11:41 the CIRC Prox. 9:13:07 Delivery device removed 9:14:51 200 mcg NTG (IC) given in lab by Esdras Serna in Right Radial via Intra-coronary. 9:14:52 Wire removed 9:16:11 HR=70 bpm, DTPU=958/99 mmhg, SpO2=89.0 %, Resp=11 B/min, Pain=8, Trell=10, Headley=2 After removing the current catheter a MPA-2 INFINITI CATHETER FR 6 was advanced over a WIRE, 3MM J .035 180CM 9:16:37 180CM. 9:19:43 The RCA was injected and visualized at various angles. OMNIPAQUE, 350 MG, 150ML 150ML used. 9:21:08 HR=65 bpm, FFTT=462/103 mmhg, SpO2=90.0 %, Resp=10 B/min, Pain=8, Trell=10, Headley=2 9:21:55 Catheter was removed 9:22:07 Case End 9:25:27 1 mg VERSED given in lab by Martinez Call, RN in Left Forearm via Peripheral IV. 9:26:09 HR=63 bpm, IKWD=603/101 mmhg, SpO2=93.0 %, Resp=13 B/min, Pain=3, Trell=10, Headley=2 Radial Compression Device Used. 12 mLs of air placed in BAND, RADIAL COMPRESSION TR LARGE 29 29C M. Affected 9:29:03 hand 93 % O2 saturation. 9:30:03 Catheter(s) removed without difficulty 9:30:07 No case complications noted. 9:30:10 Bedside Report will be given. 9:30:11 Implantable Device card placed in patient's chart. 9:31:10 HR=61 bpm, RTMK=272/93 mmhg, SpO2=93.0 %, Resp=14 B/min, Pain=3, Trell=10, Headley=2 9:32:23 0.4 mg NITROGLYCERIN S/L given in lab by Esdras Serna via Sublingual. 9:36:11 HR=62 bpm, CSFU=173/93 mmhg, Resp=22 B/min, Pain=2, Trell=10, Headley=2 9:38:53 Vitals capture stopped. 9:39:08 Patient moved to stretcher 9:43:11 600 mg PLAVIX given in lab by Martinez Call, RN via Oral. End Study - Contrast Media Used In Study Contrast Total Opened (mL) Total Used (mL) Total Wasted (mL) Omnipaque 150 150 0 End Study - Maximum Contrast Load Max Contrast Load (mL) 373.3 End Study - Radiation Exposure Fluoro Time (minutes) 10.5 End Study - Patient Disposition Complications Transferred To Interventional Outcome No Telemetry Bed successful
[2017-09-04] MEDS ORDERED: IOHEXOL 350 MG/ML 50 ML BTL (for Cath Lab) OTHER ONE (10:18)
[2017-09-04] MEDS ORDERED: IOHEXOL 350 MG/ML 100 ML BTL (for Cath Lab) OTHER ONE (10:18)
--- NOTE | 2017-09-04 10:18 | MA ---
cc: LEONIDAS OVALLES DATE 09/04/[address]-elevation [place]. PROCEDURE PERFORMED 1. Fluoroscopy with interpretation 2. Coronary angiography 3. Percutaneous intervention with bare metal stent to the proximal left circumflex coronary artery. 4. Percutaneous transluminal angioplasty of the first obtuse marginal branch. METHOD The risks, benefits and alternatives discussed with the patient, the understood and consented to the procedure. The patient brought into the catheterization lab, placed on the catheterization table. The right wrist was prepped and draped in a sterile fashion. The right wrist was anesthetized with 2% lidocaine. The right radial artery was cannulated and a 6-Greek 7 cm sheath was placed without difficulty. CORONARY ANGIOGRAPHY 1. Left main coronary artery has minor luminal irregularities. 2. Left anterior descending coronary artery proximally has only minor luminal irregularities. In the mid segment, there is 75% stenosis. The diagonal branch and the remainder of the left anterior descending coronary artery has minor luminal irregularities. 3. Left circumflex is occluded proximally. The left circumflex is a codominant vessel. 4. Right coronary has mild to moderate rather diffuse disease 40% proximal stenosis, but no high-grade obstruction. PERCUTANEOUS INTERVENTION Given the patient's ongoing symptoms and proximal circumflex stenosis, we elected to proceed with attempted revascularization. The left coronary was selectively engaged with a 6-Greek AL-1 guide catheter. A 0.014 inch, 180 cm Terumo run-through wire was navigated down the distal left sided posterior descending branch. A 2.5 x 15 mm RX balloon was advanced to the proximal circumflex and deployed. Repeat angiography showed sikhism of DEON-III flow with severe residual stenosis. The stenosis was right at the bifurcation of a first obtuse marginal branch with steep angulation and 60% stenosis. We wired the first obtuse marginal branch with a second 0.014 inch, 180 cm Terumo run-through wire and gently dilated the ostium with 2.0 x 10 mm balloon to help maintain balloon integrity secondary to suspected plaque shifting. A 2.5 x 18 mm bare metal stent was advanced down the proximal circumflex coronary artery. The wire was pulled to the obtuse marginal branch and the circumflex stent deployed. Repeat angiography showed DEON-III flow with no residual stenosis in the circumflex. The obtuse marginal branch remained patent with still moderate residual disease. Angiomax was administered throughout the entire procedure to maintain appropriate anticoagulation. CONCLUSIONS 1. 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 2. Successful percutaneous intervention with bare metal stent to the proximal left circumflex coronary artery. PLAN The patient's creatinine was mildly elevated and therefore we did not do a left ventriculogram. Also, we had some difficulty from a radial approach engaging the right coronary given tortuosity of the subclavian artery. Due to contrast limitations, we elected not to proceed with further attempted selective engagement and it did not appear there was any high-grade stenosis. At this point, we will allow the patient for recovery and then we will have to have a discussion about potential future revascularization, either surgically or percutaneously to the left anterior descending coronary artery. The patient was loaded with Plavix. We will monitor closely for any post procedural complications, obtain a 2-D echocardiogram. MD ADIEL Hinson/POPEYE /9:32 AM /10:10 AM
--- NOTE | 2017-09-04 10:28 | MH ---
cc: LEONIDAS OVALLES DATE OF ADMISSION 09/04/[address]-elevation myocardial infarction. HISTORY OF PRESENT ILLNESS This is an 82-year-old gentleman with a history of hypertension without prior history of known heart disease. He presented with acute onset of substernal chest pain this morning. Prior to arrival to the emergency department, he was found to have ST-elevation myocardial infarction. When EMS was called, he was initially found to have bradycardia and hypotension. He was given sublingual nitroglycerin without much improvement. He is diaphoretic and ST-elevation myocardial infarction protocol was initiated. He has had a heart catheterization about 10 years ago. He stated he had only minor luminal irregularities. PAST MEDICAL HISTORY 1. Hypertension 2. Gastroesophageal reflux disease SOCIAL HISTORY Quit smoking in 1982. Denies any alcohol or drug use. PAST SURGICAL HISTORY He had pancreatic surgery. ALLERGIES NO KNOWN DRUG ALLERGIES. MEDICATIONS 1. Omeprazole 2. Atenolol REVIEW OF SYSTEMS A 12-point review of systems was performed and is negative unless otherwise as noted in the history of present illness. PHYSICAL EXAMINATION VITAL SIGNS: Pulse is 72, blood pressure 180/111 mmHg. GENERAL: Alert and oriented. He is a moderate to acute distress. HEENT: Exam shows pupils reactive to light and accommodation. Extraocular movements are intact. NECK: No elevation in jugular venous distension. No thyromegaly or lymphadenopathy. No carotid bruits. LUNGS: Clear to auscultation bilaterally. CARDIOVASCULAR: Regular rate and rhythm without murmurs, rubs or gallops. ABDOMEN: Nontender and nondistended. Good bowel sounds. No hepatosplenomegaly. EXTREMITIES: Show no clubbing, cyanosis or edema. Good peripheral pulses. NEUROLOGIC: Cranial nerves intact. Motor and sensory grossly intact. LABORATORY DATA WBC 9.6, hemoglobin 15.3, platelet count 207, INR is 1. Sodium 141, potassium 4.5, BUN is 23, creatinine 1.54. Electrocardiogram, inferior ST-elevation with some anterior reciprocal changes suggestive of posterior involvement. ASSESSMENT 1. ST-elevation myocardial infarction 2. Hypertension PLAN Given the ongoing symptoms, EKG changes, we will take him to the cardiac catheterization lab for emergent revascularization. The risks, benefits and alternatives discussed with the patient and he is agreeable. MD ADIEL Hinson/POPEYE /9:38 AM /10:16 AM
[2017-09-04] MEDS ORDERED: CLOPIDOGREL 300 MG TAB PO ONE (11:00)
--- NOTE | 2017-09-04 13:52 | EKG ---
Date Performed: 09/04/2017 Time Performed: 08:17:07 PTAGE: 82 years EKG: Sinus rhythm WITH FIRST DEGREE AV BLOCK MODERATE INTRAVENTRICULAR CONDUCTION DELAY NONSPECIFIC ST & T-WAVE ABNORM ALITY ABNORMAL ECG NO PREVIOUS TRACING DOCTOR: Remington Pyle Interpretating Date/Time 09/04/2017 13:52:06
[2017-09-04] MEDS: oxyCODONE/ACETAMINOPHEN 5 MG/325 MG TAB PO PRN (15:00)
[2017-09-04] MEDS: ATORVASTATIN 10 MG TAB PO SCH (20:18)
[2017-09-04] MEDS ORDERED: METOPROLOL TARTRATE 25 MG TAB PO SCH (21:00)
[2017-09-05] VITALS (26 sets, daily range): BP systolic 114–138; BP diastolic 57–74; PULSE 53–82; RESP 16–20; TEMP 97.9–98.7; O2SAT 94–98
[2017-09-05 03:58] LABS: AUTOMATED NEUTROPHIL # 8.6 TH/MM3 (1.8-7.7); BASOPHIL # 0.1 TH/MM3 (0-0.2); BASOPHIL % 0.4 % (0.0-2.0); EOSINOPHIL # 0.3 TH/MM3 (0-0.4); EOSINOPHIL % 2.3 % (0.0-4.0); HEMATOCRIT 41.5 % (39.0-51.0); HEMOGLOBIN 14.4 GM/DL (13.0-17.0); LYMPH % 21.1 % (9.0-44.0); LYMPHOCYTE # 2.6 TH/MM3 (1.0-4.8); MEAN CELL VOLUME 92.2 FL (80.0-100.0); MEAN CORPUSCULAR HGB CONC 34.7 % (32.0-36.0); MEAN PLATELET VOLUME 8.9 FL (7.0-11.0); MONO % 6.4 % (0.0-8.0); MONOCYTE # 0.8 TH/MM3 (0-0.9); NEUT % 69.8 % (16.0-70.0); PLATELET COUNT 175 TH/MM3 (150-450); RED CELL DISTRIBUTION WIDTH 13.2 % (11.6-17.2); WHITE BLOOD COUNT 12.3 TH/MM3 (4.0-11.0)
[2017-09-05 04:11] LABS: BICARBONATE 25.8 MEQ/L (21.0-32.0); CREATININE 1.35 MG/DL (0.60-1.30)
[2017-09-05 04:26] LABS: CHOLESTEROL/ HDL RATIO 5.01 RATIO; HDL CHOLESTEROL 32.5 MG/DL (40.0-60.0)
[2017-09-05] MEDS: CLOPIDOGREL 75 MG TAB PO SCH (08:49)
[2017-09-05] MEDS: oxyCODONE/ACETAMINOPHEN 5 MG/325 MG TAB PO PRN (08:49)
[2017-09-05] MEDS: ASPIRIN 81 MG CHEW TAB PO SCH (08:50)
--- NOTE | 2017-09-05 09:38 | PD.CARD.PN ---
Subjective Subjective Remarks no complaints doing well finished breakfast Objective Medications Current Medications Medications (Trade) Dose Ordered Sig/Brandon Route Start Time Stop Time Status Last Admin (NS Flush) 2 ml UNSCH PRN IV FLUSH 09/04/17 08:30 (NS Flush) 2 ml UNSCH PRN IVF 09/04/17 08:30 (Percocet 5-325 Mg) 1 tab Q4H PRN PO 09/04/17 09:30 09/05/17 08:49 (Percocet 10-325 Mg) 1 tab Q4H PRN PO 09/04/17 09:30 09/04/17 20:18 (Morphine Inj) 2 mg Q30M PRN IV PUSH 09/04/17 09:30 (Aspirin Chew) 81 mg DAILY PO 09/05/17 09:00 09/05/17 08:50 (Plavix) 75 mg DAILY PO 09/05/17 09:00 09/05/17 08:49 (Lipitor) 40 mg HS PO 09/04/17 21:00 09/04/17 20:18 (Catapres) 0.2 mg Q6H PRN PO 09/04/17 09:45 09/04/17 10:55 (Prinivil) 5 mg DAILY PO 09/06/17 09:00 Vital Signs / I&O Vital Signs Date Time Temp Pulse Resp B/P (MAP) Pulse Ox O2 Delivery O2 Flow Rate FiO2 09/05/17 09:00 82 09/05/17 08:00 67 09/05/17 07:00 59 09/05/17 07:00 98.1 66 20 128/61 (83) 98 09/05/17 06:00 58 09/05/17 05:00 56 09/05/17 04:07 98.3 61 20 118/65 (82) 95 09/05/17 04:00 60 09/05/17 03:00 54 09/05/17 02:00 54 09/05/17 01:00 56 09/05/17 00:00 53 09/05/17 00:00 98.0 60 20 116/57 (76) 94 09/04/17 23:00 52 09/04/17 22:00 60 09/04/17 21:18 20 09/04/17 21:00 53 09/04/17 20:00 52 09/04/17 19:00 49 09/04/17 18:00 56 09/04/17 17:00 52 09/04/17 16:00 76 09/04/17 15:00 47 09/04/17 15:00 98.2 68 20 102/53 (69) 96 09/04/17 14:00 54 09/04/17 13:00 54 09/04/17 12:00 50 09/04/17 11:00 58 09/04/17 11:00 98.8 56 20 150/87 (108) 98 09/04/17 10:00 98.8 58 20 161/88 (112) 97 09/04/17 10:00 54 I/O 09/04/17 09/04/17 09/04/17 09/05/17 09/05/17 09/05/17 07:00 15:00 23:00 07:00 15:00 23:00 Intake Total 480 ml 480 ml Output Total 400 ml 0 ml Balance 80 ml 480 ml Intake Oral 480 ml 480 ml Output Urine Total 400 ml Emesis 0 ml # Voids 3 3 # Bowel Movements 0 1 Physical Exam GENERAL: SKIN: Warm and dry. HEAD: Normocephalic. EYES: No scleral icterus. No injection or drainage. NECK: Supple, trachea midline. No JVD or lymphadenopathy. CARDIOVASCULAR: Regular rate and rhythm without murmurs, gallops, or rubs. RESPIRATORY: Breath sounds equal bilaterally. No accessory muscle use. GASTROINTESTINAL: Abdomen soft, non-tender, nondistended. MUSCULOSKELETAL: No cyanosis, or edema. BACK: Nontender without obvious deformity. No CVA tenderness. Laboratory Laboratory Tests Test 09/05/17 03:23 09/05/17 06:19 White Blood Count 12.3 TH/MM3 Red Blood Count 4.50 MIL/MM3 Hemoglobin 14.4 GM/DL Hematocrit 41.5 % Mean Corpuscular Volume 92.2 FL Mean Corpuscular Hemoglobin 32.0 PG Mean Corpuscular Hemoglobin Concent 34.7 % Red Cell Distribution Width 13.2 % Platelet Count 175 TH/MM3 Mean Platelet Volume 8.9 FL Neutrophils (%) (Auto) 69.8 % Lymphocytes (%) (Auto) 21.1 % Monocytes (%) (Auto) 6.4 % Eosinophils (%) (Auto) 2.3 % Basophils (%) (Auto) 0.4 % Neutrophils # (Auto) 8.6 TH/MM3 Lymphocytes # (Auto) 2.6 TH/MM3 Monocytes # (Auto) 0.8 TH/MM3 Eosinophils # (Auto) 0.3 TH/MM3 Basophils # (Auto) 0.1 TH/MM3 CBC Comment DIFF FINAL Differential Comment Blood Urea Nitrogen 18 MG/DL Creatinine 1.35 MG/DL Random Glucose 87 MG/DL Calcium Level 9.0 MG/DL Sodium Level 138 MEQ/L Potassium Level 4.3 MEQ/L Chloride Level 104 MEQ/L Carbon Dioxide Level 25.8 MEQ/L Anion Gap 8 MEQ/L Estimat Glomerular Filtration Rate 51 ML/MIN Total Creatine Kinase 1226 U/L Creatine Kinase MB 163.0 NG/ML Creatine Kinase MB % 13.3 % Triglycerides Level 259 MG/DL Cholesterol Level 163 MG/DL LDL Cholesterol 79 MG/DL HDL Cholesterol 32.5 MG/DL Cholesterol/HDL Ratio 5.01 RATIO Platelet Function P2Y12 React Units 168 PRU Imaging Last Impressions Chest X-Ray 09/04/17 0819 Signed Impressions: Service Date/Time: September 08:24 - CONCLUSION: 1. No acute cardiopulmonary disease. Santosh Boothe MD Assessment and Plan Assessment and Plan STEMI - PCI LCX KATHRYN. asa plavix P2Y12 168. plavix responder. statin DC BB due to bradycardia 2d echo today Cr stable. encourage PO hydration. CK 1200. no arrhythmias Hopeful for DC planning tomorrow. add ACEi. plan for staged PCI LAD as outpatient. Esdras Serna MD Sep 05, 2017 09:38
--- NOTE | 2017-09-05 17:12 | ECHRPT ---
Indication: CHEST PAIN CONCLUSIONS Normal left ventricular size and wall thickness. The left ventricular systolic function is normal wi th an estimated ejection fraction of 60%. No definite wall motion abnormalities. Mild aortic sclerosis. BP: 128 / 61 HR: 59 Rhythm: Sinus MEASUREMENTS (Male / Female) Normal Values Technical Quality:Very technically difficult study 2D ECHO LV Diastolic Diameter PLAX 4.9 cm 4.2 - 5.9 / 3.9 - 5.3 cm LV Systolic Diameter PLAX 3.8 cm IVS Diastolic Thickness 1.5 cm 0.6 - 1.0 / 0.6 - 0.9 cm LVPW Diastolic Thickness 1.5 cm 0.6 - 1.0 / 0.6 - 0.9 cm LV Relative Wall Thickness 0.6 RV Internal Dim ED PLAX 2.9 cm LVOT Diameter 2.1 cm Aortic Root Diameter 3.3 cm LA Systolic Diameter LX 3.5 cm 3.0 - 4.0 / 2.7 - 3.8 cm DOPPLER AV Peak Velocity 198.5 cm/s AV Peak Gradient 15.8 mmHg AV Mean Gradient 8.5 mmHg AV Velocity Time Integral 37.4 cm LVOT Peak Velocity 111.0 cm/s LVOT Peak Gradient 4.9 mmHg LVOT Velocity Time Integral 18.4 cm AV Area Cont Eq vti 1.7 cm AV Area Cont Eq pk 1.9 cm Mitral E Point Velocity 85.4 cm/s Mitral A Point Velocity 88.8 cm/s Mitral E to A Ratio 1.0 LV E' Lateral Velocity 5.9 cm/s Mitral E to LV E' Lateral Ratio 14.6 LV E' Septal Velocity 6.4 cm/s Mitral E to LV E' Septal Ratio 13.3 TR Peak Velocity 195.0 cm/s TR Peak Gradient 15.2 mmHg PV Peak Velocity 85.7 cm/s PV Peak Gradient 2.9 mmHg FINDINGS LEFT VENTRICLE Normal left ventricular size and wall thickness. The left ventricular systolic function is normal wi th an estimated ejection fraction of 60%. No definite wall motion abnormalities. RIGHT VENTRICLE Normal right ventricular size and systolic function. LEFT ATRIUM The left atrial size is normal. RIGHT ATRIUM The right atrial size is normal. ATRIAL SEPTUM No atrial level shunt is demonstrated by color flow Doppler interrogation. AORTA The aortic root and proximal ascending aorta are normal in size on limited imaging. MITRAL VALVE Structurally normal mitral valve. No mitral valve stenosis or regurgitation. AORTIC VALVE Mild aortic sclerosis. TRICUSPID VALVE Structurally normal tricuspid valve. No tricuspid valve stenosis or regurgitation. PULMONARY VALVE The pulmonary valve is not well visualized. VESSELS The inferior vena cava is normal in size. PERICARDIUM No pericardial effusion. Jeff Trejo MD (Electronically Signed) Final Date:05 September 2017 17:12
--- NOTE | 2017-09-05 19:40 | EKG ---
Date Performed: 09/05/2017 Time Performed: 06:11:16 PTAGE: 82 years EKG: Sinus rhythm with 1st degree A-V block ST junctional depression is nonspecific Since the prior tracing, there has been no significant change Abnormal ECG PREVIOUS TRACING ; 09/04/17 @0611 DOCTOR: Ed Michale Interpretating Date/Time 09/05/2017 19:39:01
--- NOTE | 2017-09-05 21:34 | EKG ---
Date Performed: 09/04/2017 Time Performed: 13:54:33 PTAGE: 82 years EKG: SINUS BRADYCARDIA WITH FIRST DEGREE AV BLOCK Compared to previous tracing, ST abnormality r esolved ABNORMAL ECG PREVIOUS TRACING : 09/04/2017 08.17 DOCTOR: Ed Michael Interpretating Date/Time 09/05/2017 21:32:57
[2017-09-05] MEDS: ATORVASTATIN 10 MG TAB PO SCH (22:41)
[2017-09-06] VITALS (13 sets, daily range): BP systolic 134–161; BP diastolic 78–90; PULSE 74–96; RESP 16; TEMP 97.7–98.2; O2SAT 95–97
[2017-09-06] MEDS: CLOPIDOGREL 75 MG TAB PO SCH (08:48)
[2017-09-06] MEDS: ASPIRIN 81 MG CHEW TAB PO SCH (08:48)
[2017-09-06] MEDS ORDERED: LISINOPRIL 5 MG TAB PO SCH (09:00)
--- NOTE | 2017-09-06 09:21 | PD.CARD.PN ---
Subjective Subjective Remarks feeling well. denies chest pain or sob. approximately 11 beats of NSVT early this morning; nursing states he was straining to move bowels at that time. (Ruth Tong) Objective Medications Current Medications Medications (Trade) Dose Ordered Sig/Brandon Route Start Time Stop Time Status Last Admin (NS Flush) 2 ml UNSCH PRN IV FLUSH 09/04/17 08:30 (NS Flush) 2 ml UNSCH PRN IVF 09/04/17 08:30 (Percocet 5-325 Mg) 1 tab Q4H PRN PO 09/04/17 09:30 09/05/17 08:49 (Percocet 10-325 Mg) 1 tab Q4H PRN PO 09/04/17 09:30 09/04/17 20:18 (Morphine Inj) 2 mg Q30M PRN IV PUSH 09/04/17 09:30 (Aspirin Chew) 81 mg DAILY PO 09/05/17 09:00 09/06/17 08:48 (Plavix) 75 mg DAILY PO 09/05/17 09:00 09/06/17 08:48 (Lipitor) 40 mg HS PO 09/04/17 21:00 09/05/17 22:41 (Catapres) 0.2 mg Q6H PRN PO 09/04/17 09:45 09/04/17 10:55 (Prinivil) 5 mg DAILY PO 09/06/17 09:00 09/06/17 08:48 Vital Signs / I&O Vital Signs Date Time Temp Pulse Resp B/P (MAP) Pulse Ox O2 Delivery O2 Flow Rate FiO2 09/06/17 07:29 97.7 77 16 134/83 (100) 96 09/06/17 05:45 98.2 96 16 161/90 (113) 97 09/06/17 05:00 84 09/06/17 04:05 80 09/06/17 04:05 80 09/06/17 04:00 84 09/06/17 03:00 76 09/06/17 02:00 76 09/06/17 01:00 74 09/06/17 00:00 97.9 86 16 152/78 (102) 95 09/06/17 00:00 78 09/05/17 23:00 82 09/05/17 22:00 70 09/05/17 21:00 72 09/05/17 20:35 97.9 77 16 124/74 (91) 97 09/05/17 20:00 78 09/05/17 19:00 81 09/05/17 18:00 80 09/05/17 17:00 71 09/05/17 16:00 80 09/05/17 15:00 69 09/05/17 15:00 98.7 73 20 114/69 (84) 96 09/05/17 14:00 70 09/05/17 13:00 75 09/05/17 12:00 71 09/05/17 11:00 98.3 80 20 138/66 (90) 95 09/05/17 11:00 69 09/05/17 10:00 80 I/O 09/05/17 09/05/17 09/05/17 09/06/17 09/06/17 09/06/17 07:00 15:00 23:00 07:00 15:00 23:00 Intake Total 480 ml 1720 ml 480 ml Output Total 0 ml 650 ml 800 ml Balance 480 ml 1070 ml -320 ml Intake Oral 480 ml 720 ml 480 ml IV Total 1000 ml Output Urine Total 650 ml 800 ml Emesis 0 ml # Voids 3 # Bowel Movements 1 0 1 Physical Exam GENERAL: SKIN: Warm and dry. HEAD: Atraumatic. Normocephalic. EYES: Pupils equal and round. No scleral icterus. ENT: No nasal bleeding or discharge. NECK: Trachea midline. No JVD. CARDIOVASCULAR: Regular rate and rhythm. no murmurs RESPIRATORY: No accessory muscle use. Clear to auscultation. Breath sounds equal bilaterally. GASTROINTESTINAL: Abdomen soft, non-tender, nondistended. MUSCULOSKELETAL: Extremities without clubbing, cyanosis, or edema. No obvious deformities. NEUROLOGICAL: Awake and alert. No obvious cranial nerve deficits.. Normal speech. PSYCHIATRIC: Appropriate mood and affect; insight and judgment normal. (Ruth Tong) Assessment and Plan Problem List: (1) STEMI (ST elevation myocardial infarction) ICD Codes: I21.3 - ST elevation (STEMI) myocardial infarction of unspecified site Status: Acute Assessment and Plan 82 yo WM with HTN presented with acute chest pain and STEMI. CAD- s/p LHC with thrombosis of proximal left circumflex, PCI BMS to prox Lcx. consider staged PCI to LAD, creatinine mildly elevated at time of catheterization creatinine improving. echo normal EF, mild tele shows ~ 11 beats of NSVT this morning when patient was straining to move bowels. no chest pain. cont asa, statin, plavix consider discharge home and follow up in outpatient setting. (Ruth Tong) Assessment and Plan echo normal ef NSVT last night.asymptomatic. DC ACEi start BB DC home (Esdras Serna MD) Problem Qualifiers (1) STEMI (ST elevation myocardial infarction): Qualified Codes: I21.11 - ST elevation (STEMI) myocardial infarction involving right coronary artery Ruth Tong Sep 06, 2017 09:21 Esdras Serna MD Sep 06, 2017 10:30
[2017-09-06] MEDS ORDERED: PLAV75TA29 PO (10:26)
[2017-09-06] MEDS ORDERED: ASPI81 PO (10:26)
[2017-09-06] MEDS ORDERED: LIPI10TA PO (10:26)
--- NOTE | 2017-09-06 10:28 | HHI.DS ---
Discharge Summary Admission Date Sep 04, 2017 at 08:37 Discharge Date: Sep 06, 2017 Admitting Diagnosis STEMI Procedures [facility] PCI KATHRYN LCX CBC/BMP: 09/05/17 0323 09/05/17 0323 Significant Findings Laboratory Tests Test 09/04/17 08:20 09/05/17 03:23 09/05/17 06:19 Activated Partial Thromboplast Time 24.1 SEC (24.3-30.1) Blood Urea Nitrogen 23 MG/DL (7-18) Creatinine 1.54 MG/DL (0.60-1.30) 1.35 MG/DL (0.60-1.30) Random Glucose 120 MG/DL (74-106) Chloride Level 108 MEQ/L (98-107) Bedside Blood Urea Nitrogen 29 MG/DL (5-21) Bedside Creatinine 1.5 MG/DL (0.6-1.3) Estimat Glomerular Filtration Rate 44 ML/MIN (>89) 51 ML/MIN (>89) Bedside Glucose 120 MG/DL (68-110) Troponin I LESS THAN 0.02 NG/ML White Blood Count 12.3 TH/MM3 (4.0-11.0) Neutrophils # (Auto) 8.6 TH/MM3 (1.8-7.7) Total Creatine Kinase 1226 U/L (39-308) Creatine Kinase MB 163.0 NG/ML (0.5-3.6) Creatine Kinase MB % 13.3 % (0.0-4.0) Triglycerides Level 259 MG/DL (42-150) HDL Cholesterol 32.5 MG/DL (40.0-60.0) Platelet Function P2Y12 React Units 168 PRU (194-418) Pt Condition on Discharge: Good Discharge Disposition: Discharge Home Discharge Instructions DIET: Follow Instructions for: Heart Healthy Diet Activities you can perform: Weight Bearing as Esdras White MD Sep 06, 2017 10:28
[2017-09-06] MEDS ORDERED: ATENOLOL 25 MG TAB PO SCH (10:30)
[2017-09-06] MEDS ORDERED: METOPROLOL TARTRATE 25 MG TAB PO SCH (10:30)
== END 2017-09-06 11:45 | disposition home or self-care (01) | DRG 249 ==
LOC: NEPC 08:11 → NEDA 08:37 → HCPC 09:50
PROVIDERS: ADMIT Internal Medicine; ATTEND Internal Medicine
PROC: 02703DZ Dilation of Coronary Artery, One Artery with Intraluminal Device, Percutaneous Approach (ICD-10-PCS; principal; 2017-09-04)
PROC: 4A023N7 Measurement of Cardiac Sampling and Pressure, Left Heart, Percutaneous Approach (ICD-10-PCS; 2017-09-04)
PROC: B2111ZZ Fluoroscopy of Multiple Coronary Arteries using Low Osmolar Contrast (ICD-10-PCS; 2017-09-04)
DX: I21.11 ST elevation (STEMI) myocardial infarction involving right coronary artery (principal); I47.2 Ventricular tachycardia; I95.9 Hypotension, unspecified; R00.1 Bradycardia, unspecified; I25.10 Atherosclerotic heart disease of native coronary artery without angina pectoris; I10 Essential (primary) hypertension; K21.9 Gastro-esophageal reflux disease without esophagitis; H91.90 Unspecified hearing loss, unspecified ear; Z87.891 Personal history of nicotine dependence
CPT/HCPCS: 71045; 80048; 80053; 80061; 82550; 82552; 83690; 83735; 84484; 85025; 85576; 85610; 85730; 92941; 93005; 93306; 93454; 96374; 96375; 99152; 99153; C1725; C1769; C1876; C1887; C1893; J0583; J1644; J2250; J2270; J2405; J3010; J7030; Q9967

== ENCOUNTER → 2017-09-17 | Outpatient (CLI) | payer MEDICARE, BC, OTHER ==
[~2017-09-17] MED LIST changes: +ASPI81 PO; +LIPI10TA PO; +MULTTAB67 PO; +PLAV75TA29 PO; +TUMS500C CHEW
[2017-09-17 10:11] LABS: PROTHROMBIN TIME - PATIENT 10.2 SEC (9.8-11.6)
[2017-09-17 13:50] LABS: BASOPHIL % 0.5 % (0.0-2.0); EOSINOPHIL # 0.2 TH/MM3 (0-0.4); EOSINOPHIL % 3.9 % (0.0-4.0); HEMATOCRIT 41.5 % (39.0-51.0); HEMOGLOBIN 14.4 GM/DL (13.0-17.0); LYMPH % 25.2 % (9.0-44.0); LYMPHOCYTE # 1.6 TH/MM3 (1.0-4.8); MEAN CELL VOLUME 91.4 FL (80.0-100.0); MEAN CORPUSCULAR HEMOGLOBIN 31.6 PG (27.0-34.0); MEAN CORPUSCULAR HGB CONC 34.6 % (32.0-36.0); MONO % 6.4 % (0.0-8.0); MONOCYTE # 0.4 TH/MM3 (0-0.9); PLATELET COUNT 220 TH/MM3 (150-450); RED BLOOD COUNT 4.54 MIL/MM3 (4.50-5.90); WHITE BLOOD COUNT 6.3 TH/MM3 (4.0-11.0)
[2017-09-17 13:51] LABS: AST (GOT) 25 U/L (15-37); BICARBONATE 28.1 MEQ/L (21.0-32.0); BLOOD UREA NITROGEN 11 MG/DL (7-18); CHLORIDE 107 MEQ/L (98-107); CREATININE 1.12 MG/DL (0.60-1.30); GLOMERULAR FILTRATION RATE 63 ML/MIN (>89); SODIUM (NA) 141 MEQ/L (136-145)
[2017-09-17 13:59] LABS: ALKALINE PHOSPHATASE 57 U/L (45-117); ALT (GPT) 37 U/L (12-78); CALCIUM 9.4 MG/DL (8.5-10.1); GLUCOSE,RANDOM 87 MG/DL (74-106); TOTAL BILIRUBIN ADULT 0.6 MG/DL (0.2-1.0); TOTAL PROTEIN 7.6 GM/DL (6.4-8.2)
== END ==
LOC: PLAB 09:19
PROVIDERS: ATTEND Internal Medicine
DX: I25.119 Atherosclerotic heart disease of native coronary artery with unspecified angina pectoris (principal)
CPT/HCPCS: 36415; 80053; 85025; 85610

== ENCOUNTER 2017-09-23 06:19 | Day surgery (SDC) | payer MEDICARE, BC, OTHER ==
[~2017-09-23] VITALS: Ht 175.3 cm; Wt 110.8 kg
[~2017-09-23 06:19] MED LIST changes: -MULTTAB67 PO; -TUMS500C CHEW
[2017-09-23] MEDS ORDERED: IOHEXOL 350 MG/ML 50 ML BTL (for Cath Lab) OTHER ONE (06:20)
[2017-09-23] MEDS: NS 1000P @30 MLS/HR (KVO) IV SCH ×2 (07:00→09:15)
[2017-09-23] MEDS ORDERED: MULTTAB67 PO (07:07)
[2017-09-23] MEDS ORDERED: TUMS500C CHEW (07:07)
[2017-09-23 07:08] VITALS: BP 155/95; PULSE 60; RESP 18; TEMP 97.6; O2SAT 98
[2017-09-23] MEDS ORDERED: HEPARIN SODIUM - IV 10,000 UNITS/10 ML VIAL ONE (08:07)
[2017-09-23] MEDS ORDERED: MIDAZOLAM HCL 2 MG/2 ML VIAL ONE (08:07)
[2017-09-23] MEDS ORDERED: HEPARIN-NS/PF FLUSH BAG 2,000 ML IV FLUSH ONE (08:07)
[2017-09-23] MEDS ORDERED: NITROGLYCERIN INJ 5 ML ONE (08:07)
[2017-09-23] MEDS ORDERED: MISC INFORMATION XX ONE (09:00)
--- NOTE | 2017-09-23 09:11 | CATHPROC ---
[employer] HIS Report Study Information Study Number Admission Scheduled Start Study Start [id number] Sep 23 2017 6:19AM 09/23/2017 Sep 23 2017 8:09AM [place] [facility] Cardiac Catheterization Admit Source Facility Department Other [facility] Physician and Clinical Staff Initial Esdras Hartmann Evs Manager Nini Connolly,MIKA Recorder Brooke Harvey,RT(R) (BS) Recorder Jesica Ivy RCIS TECH2 Scrub Viktoria Garza,RT(R) Scrub Genia Vieira ,RT(R) Procedures Performed Procedure Location (Site) Vessel Name Coronary Angiograms LCA Left Coronary Coronary Angiograms RCA Right Coronary Drug Eluting Inflatio LAD Mid Left Coronary PTCA LAD Mid Left Coronary Wire insertion Fem Art (right) Femoral Art Equipment Time Giving Officer Description Size Mfg Part Number Used/Scraped COPILOT VALVE, BLEEDBACK [id number] 08:15 [employer] Used CONTROL *[id number] TRANSDUCER, TRUWAVE [id number] 08:15 MARQUEZ LUCERO * Used W/STOCKCOCK *[id number] *[id number] *[id number] 08:56 [employer]IG[employer] MEDICAL ANGIOSEAL, FR6 VIP FR 6 Used *[id number] 08:15 [employer] IND[employer] PACK, CCL CUSTOM * Used *[id number] 08:15 MEDLINE PACER PEN, SKIN DUAL W/ RULER * Used *[id number] 08:42 [employer] BALLOON, 2.5 X 20MM EUPHORA 20MM Used *[id number] 08:46 [employer] STENT, 2.75 26MM MARGIE 2.75 26MM Used *[id number] 08:43 [employer] MEDICAL 30 PATRICE INDEFLATOR Used *[id number] SHEATH, FR6 RADIAL PRELUDE 08:37 [employer] MEDICAL FR 6 [id number] Used EASE 11CM [id number] 08:15 [employer] MEDICAL SHEATH, FR6.5 PRELUDE 11CM FR 6.5 038ACT Used *[id number] 08:15 [employer] MEDICAL WIRE, 3MMJ .035 180CM 180CM Used *[id number] 08:15 [facility] MANIFOLD, 4 PORT * Used *[id number] 08:15 [employer] OMNIPAQUE, 350 MG, 150ML 150ML [id number] Used [id number] 08:15 [employer],WARM AIR CCL * Used *[id number] WIRE, RUNTHROUGH NS FLOPPY [id number] 08:24 [employer] MEDICAL 180CM Used .014 180CM *[id number] Equipment Model, Serial, Lot Number and Expiration Data Description Model Number Serial Number Lot Number Expiration Date STENT, 2.75 26MM MARGIE [id number] 05-06-2019 History: Current Medications Medication Dosage/Unit Route Frequency Last Date/Time Taken ASA Beta Leonor Statins (any) PLAVIX History: Allergies Allergy Reaction tazobactam piperacillin History: Risk Factors Family History of Hypertension Dyslipidemia Previous GA Previous Heart Failure Premature CAD Yes Yes No Yes No Prior Valve Prior PCI Prior PCIDate Prior CABG Surgery No Yes 09/04/2017 No Cerebrovascular Peripheral Artery Chronic Lung On Dialysis Diabetes Disease Disease Disease No No No No No History: Symptoms/Diagnosis Selection Items Chest pain History: CV Disease Selection Items Known CAD GA History: Stress Tests Stress or Imaging Studies Performed No History: Other Disease Selection Items Gerd History: Other Current Smoker Method Quit Packs a Day Years Used Pack Years No Cigarettes 25 Years Ago 1 30 30 Labs Hgb (g/dl) Hct (%) WBC (l/cumm) Platelets (thousands) 11.60-17.00 35.00-51.00 4.00-11.00 150.00-450.00 14.4 41.5 6.3 220 Glucose (mg/dl) BUN (mg/dl) Creatinine (mg/dl) BUN:Creatinine (1:x) 74.00-106.00 7.00-18.00 0.50-1.30 10.00-20.00 87 11 1.1 10 Na (meq/l) K (meq/l) 136.00-145.00 3.50-5.10 141 4.6 INR (PTT:PT) 0.90-1.10 1 CPK-MB (ng/ML) 0.50-3.60 Not Drawn Medication Medication Total Dose (Bolus/Oral) Medication Total Dosage/Unit 1% XYLOCAINE 20 mL FENTANYL 75 mcg HEPARIN 7800 units NTG (IC) 200 mcg VERSED 2 mg Medications (Bolus/Oral) Medication Time Given Dosage/Unit Administered By Reason VERSED 09/23/2017 8:27:34 AM 1 mg Nini Connolly 1 mg VERSED given in lab by Nini Connolly RN in Left Hand via Peripheral IV. 1% XYLOCAINE 09/23/2017 8:27:55 AM 20 mL Esdras Serna 20 mL 1% XYLOCAINE given in lab by Esdras Serna in Right Groin via Subcutaneous. FENTANYL 09/23/2017 8:28:42 AM 50 mcg Nini Connolly 50 mcg FENTANYL given in lab by Nini Connolly RN in Left Hand via Peripheral IV. HEPARIN 09/23/2017 8:38:07 AM 7800 units Nini Connolly 7800 units HEPARIN given in lab by Nini Connolly RN in Left Hand via Peripheral IV. Ordered by Esdras Domingo. NTG (IC) 09/23/2017 8:49:36 AM 200 mcg Esdras Serna 200 mcg NTG (IC) given in lab by Esdras Serna via Intra-coronary to LCA. Ordered by Esdras Serna. VERSED 09/23/2017 8:54:52 AM 1 mg Nini Connolly 1 mg VERSED given in lab by Nini Connolly RN in Left Hand via Peripheral IV. Ordered by Heath Serna. FENTANYL 09/23/2017 8:55:25 AM 25 mcg Nini Connolly 25 mcg FENTANYL given in lab by Nini Connolly RN in Left Hand via Peripheral IV. Ordered by Esdras Serna. Medication (Drip) Medication Time Given Dosage/Unit Concentration/Unit Diluent (ml) Solutio n IV Solutions 09/23/2017 8:10:05 AM 0 mL (IV) 500 NaCl .9 IV Solutions given in lab by Nini Connolly RN in Left Hand via Peripheral IV. Pump/Drip Flow = 30 ml/hr using NaCl .9. Initial Case Assessment Cardiovascular HR Rhythm NIBP Chest Pain 58 reg 144/87 0 Edema Present Skin color Skin None Normal Warm Dry Circulatory - Right Pulses Dorsalis Pedis Femoral Radial 1 2 3 Scale (0,1,2,3,4,d) Scale (0,1,2,3,4,d) Circulatory - Lower Extremities Color Lower Right Color Lower Left Normal Normal Neurological State Oriented to time-place- Alert Moves all extremities person Respiration - General Respiration Rate SpO2 (%) (B/min) 20 97 Final Case Assessment Cardiovascular HR Rhythm NIBP Chest Pain 62 sr 131/76 0 Circulatory - Right Pulses Dorsalis Pedis Femoral Radial 1 2 3 Scale (0,1,2,3,4,d) Scale (0,1,2,3,4,d) Neurological State Oriented to time-place- Alert Moves all extremities person Respiration - General Respiration Rate SpO2 (%) (B/min) 15 98 Chronological Log Time Study Chronological Log 8:06:40 Patient arrived via Bed. 8:06:44 Patient Name, D.O.B, / Armband Verified By R.N. 8:06:46 Consent signed by the physician and the patient and verified by the [facility] staff. 8:09:49 Pre-op and post- op instructions given; patient acknowledges understanding of instructions. 8:09:49 Verbal Stimulation=2 Physical Stimulation=2 Airway=2 Respiration=2 TOTAL=8. (0=absent, 1=orosco ited, 2=present) 8:09:51 Presedation assessment performed by [facility] RN. 8:09:52 Allens test performed on the right radial and ulnar artery. 8:09:58 Patient has been NPO for More than 6Hrs. 8:10:00 Skin Breakdown none per pt 8:10:01 Patient Warmer Placed on the Table. 8:10:02 Sophia Prominences Protected 8:10:05 A # 20 IV was noted in the Hand (left). Grade = patent IV Solutions given in lab by Nini Connolly, RN in Left Hand via Peripheral IV. Pump/Drip Flow = 30 ml/hr using NaCl 8:10:05 .9. Assessment: Initial Case, HR=58 BPM, Rhythm=reg, RXCG=661/87 mmhg, Chest Pain=0, Edema=None, Col or=Normal, Skin = Warm, Dry Right Pulses: Richardson Ped=1, Femoral=2, Radial=3 8:10:07 Lower Right Extremities: Color=Normal Lower Left Extremities: Color=Normal Neurological: State=Alert, Ox3, ESPARZA Respiration: Resp=20 B/min, SpO2=97 % 8:10:07 History and physical on the chart or being dictated. Vitals capture started with the following parameters, Patient=Adult, Interval=3 min, Initial Pre rxsja=117 mmHg, 8:16:56 Deflation Rate=5 mmHg, Cuff placed on Left Arm Vitals capture started with the following parameters, Patient=Adult, Interval=3 min, Initial Pre cwxky=282 mmHg, 8:19:41 Deflation Rate=5 mmHg, Cuff placed on Left Arm Vitals capture started with the following parameters, Patient=Adult, Interval=5 min, Initial Pre rpsot=084 mmHg, 8:19:53 Deflation Rate=5 mmHg, Cuff placed on Left Arm Vitals capture started with the following parameters, Patient=Adult, Interval=5 min, Initial Pre zjzvj=814 mmHg, 8:20:38 Deflation Rate=5 mmHg, Cuff placed on Left Arm 8:21:22 Right Radial and right groin prepped with 2% chlorhexidine, and draped after a 3 min. waitin g time. Vitals capture started with the following parameters, Patient=Adult, Interval=5 min, Initial Pre xfmiy=628 mmHg, 8::48 Deflation Rate=5 mmHg, Cuff placed on Left Arm Vitals capture started with the following parameters, Patient=Adult, Interval=5 min, Initial Pre tpdaj=272 mmHg, 8:22:51 Deflation Rate=5 mmHg, Cuff placed on Left Arm Vitals capture started with the following parameters, Patient=Adult, Interval=5 min, Initial Pre iozvm=506 mmHg, 8:23:06 Deflation Rate=5 mmHg, Cuff placed on Left Arm Vitals capture started with the following parameters, Patient=Adult, Interval=5 min, Initial Pre zwxkv=312 mmHg, 8:23:29 Deflation Rate=5 mmHg, Cuff placed on Left Arm 8:24:09 HR=61 bpm, NFOD=696/87 mmhg, SpO2=97.0 %, Resp=16 B/min, Pain=0, Trell=10, Headley=2 8:24:52 Reference ECG taken 8:25:23 MD arrived 8:27:14 Pressure channel 1 zeroed. 8:27:34 1 mg VERSED given in lab by Nini Connolly, MIKA in Left Hand via Peripheral IV. Time Out. Correct patient, correct procedure, correct physician, power injector not loaded with contrast with surgical 8:27:38 team present. Time Out Concurred by MD and individual staff in procedure. 8:27:48 Case Start 8:27:55 20 mL 1% XYLOCAINE given in lab by Esdras Serna in Right Groin via Subcutaneous. 8:28:42 50 mcg FENTANYL given in lab by Nini Connolly, RN in Left Hand via Peripheral IV. 8:29:08 HR=53 bpm, BTIY=504/79 mmhg, SpO2=96.0 %, Resp=14 B/min 8:31:09 Access site was Right Femoral Artery. 8:31:20 A SHEATH, FR6.5 PRELUDE 11CM FR 6.5 was advanced into the Groin (right) using the Percutaneo us technique. A JR 4.0 INFINITI CATHETER FR 6 was advanced over a wire. OMNIPAQUE, 350 MG, 150ML 150ML was use d for 8:32:32 injections. Recorded Pressure: Ao, HR=57, Condition=Condition 1 8:32:59 (Aorta) Ao 147/81/108 8:33:57 The RCA was injected and visualized at various angles. OMNIPAQUE, 350 MG, 150ML 150ML used. 8:34:09 HR=56 bpm, IQJZ=178/84 mmhg, SpO2=92.0 %, Resp=9 B/min After removing the current catheter a XB 3.5 GUIDE CATHETER FR 6 was advanced over a WIRE, 3MMJ .035 180CM 8:34:29 180CM. 8:37:35 The LCA was injected and visualized at various angles. OMNIPAQUE, 350 MG, 150ML 150ML used. 8:38:07 7800 units HEPARIN given in lab by Nini Connolly, RN in Left Hand via Peripheral IV. Order ed by Esdras Serna. 8:39:47 HR=53 bpm, LGHU=722/82 mmhg, SpO2=98.0 %, Resp=7 B/min 8:40:44 A WIRE, RUNTHROUGH NS FLOPPY .014 180CM 180CM was inserted via Fem Art (right). A BALLOON, 2.5 X 20MM EUPHORA 20MM was inserted over WIRE, RUNTHROUGH NS FLOPPY .014 180CM 180CM via 8:40:53 the LAD Mid. A BALLOON, 2.5 X 20MM EUPHORA 20MM over a WIRE, RUNTHROUGH NS FLOPPY .014 180CM 180CM in the LAD Mid 8:42:52 was inflated using a 30 PATRICE INDEFLATOR at 10 patrice for 16 sec. 8:44:08 HR=55 bpm, NFXW=675/84 mmhg, SpO2=97.0 %, Resp=15 B/min 8:44:19 Balloon Removed. A STENT, 2.75 26MM MARGIE 2.75 26MM was advanced through a XB 3.5 GUIDE CATHETER FR 6 over a WIRE, 8:45:16 RUNTHROUGH NS FLOPPY .014 180CM 180CM. A STENT, 2.75 26MM MARGIE 2.75 26MM was deployed using a 30 PATRICE INDEFLATOR at 14 atmospheres for 1 4 seconds 8:47:19 in the LAD Mid. 8:48:34 Delivery device removed 8:49:07 HR=57 bpm, CVWJ=306/90 mmhg, SpO2=95.0 %, Resp=16 B/min 8:49:36 200 mcg NTG (IC) given in lab by Esdras Serna via Intra-coronary to LCA. Ordered by Esdras Serna. 8:51:44 Wire removed 8:52:17 Guide Catheter was removed over wire 8:53:31 An injection in the Fem Art (right) was made through the SHEATH, FR6.5 PRELUDE 11CM FR 6.5. 8:54:10 HR=61 bpm, HHRI=147/84 mmhg, SpO2=95.0 %, Resp=18 B/min 8:54:52 1 mg VERSED given in lab by Nini Connolly, MIKA in Left Hand via Peripheral IV. Ordered by Esdras Irizarry. 8:55:25 25 mcg FENTANYL given in lab by Nini Connolly RN in Left Hand via Peripheral IV. Ordered by Esdras Serna. 8:56:05 ANGIOSEAL, FR6 VIP FR 6 placement in the Fem Art (right) 8:57:41 Case End 8:58:10 Sterile dressing applied to site 8:58:12 No case complications noted. 8:58:13 Cine recording checked. Assessment: Final Case, HR=62 BPM, Rhythm=sr, QYZC=712/76 mmhg, Chest Pain=0 Right Pulses: Richardson Ped=1, Femoral=2, Radial=3 8:58:22 Neurological: State=Alert, Ox3, ESPARZA Respiration: Resp=15 B/min, SpO2=98 % 8:59:09 HR=58 bpm, HATL=702/76 mmhg, SpO2=94.0 %, Resp=17 B/min, Pain=0, Headley=2 9:03:39 Vitals capture stopped. 9:04:47 Patient moved to bed 9:05:14 Patient transported to DOCU. End Study - Contrast Media Used In Study Contrast Total Opened (mL) Total Used (mL) Total Wasted (mL) Omnipaque 60 60 0 End Study - Maximum Contrast Load Max Contrast Load (mL) 503.7 End Study - Radiation Exposure Fluoro Time (minutes) 2.5 End Study - Sheaths Sheaths Pulled By Sheath Hold Time (min) Minor, Esdras End Study - Patient Disposition Complications Transferred To Interventional Outcome No Telemetry Bed successful
[2017-09-23] MEDS ORDERED: SODIUM CHLOR 0.9% 1000 ML INJ 1,000 ML IV SCH (09:45)
[2017-09-23] MEDS ORDERED: oxyCODONE/ACETAMINOPHEN 10 MG/325 MG TAB PO PRN (09:45)
[2017-09-23] MEDS ORDERED: ACETAMINOPHEN 325 MG TAB PO PRN (09:45)
[2017-09-23] MEDS ORDERED: oxyCODONE/ACETAMINOPHEN 5 MG/325 MG TAB PO PRN (09:45)
[2017-09-23] MEDS ORDERED: SODIUM CHLOR 0.9% 250 ML INJ 250 ML IV PRN (09:45)
[2017-09-23] MEDS ORDERED: ATROPINE SULFATE 1 MG/ML VIAL IV PUSH PRN (09:45)
[2017-09-23] MEDS ORDERED: ASPIRIN 81 MG CHEW TAB PO SCH (09:45)
--- NOTE | 2017-09-23 11:22 | MA ---
cc: LEONIDAS OVALLES DATE: 09/23/2017 INDICATION Unstable angina PROCEDURES PERFORMED 1. Fluoroscopy with these 2. Coronary angiography 3. Percutaneous intervention with drug-eluting stent to the mid left anterior descending coronary artery. ONSET Method; and alternatives us with the patient. The patient understood, consented. PROCEDURE The patient brought catheterization lab and the catheterization table. Right groin was prepped and draped in sterile fashion. Right groin was anesthetized 2% lidocaine. Right common femoral was cannulated 6-Belgian, 11 cm sheath was placed out difficulty. CORONARY ANGIOGRAPHY: 1. Left main coronary has minor irregularity 2. Left anterior descending coronary has a 30% calcific stenosis proximally in the mid segment there is 75 percent stenosis. There is a moderate-sized diagonal branch that bifurcates proximal to the stenosis. There is a second smaller diagonal branch with 90% diffuse disease but very small caliber size. Distal left anterior descending coronary minor irregularities. 3. Left circumflex has a stent present in the proximal segment at the bifurcation of the first obtuse marginal branch the stent is widely patent. The circumflex is technically codominant with a very small left-sided posterior descending branch first obtuse marginal branch has 30% stenosis proximally and otherwise minor luminal irregularities. The remainder of the vessel has mild luminal irregularities in the circumflex. 4. The right coronaries a codominant vessel giving rise to a small to moderate sized posterior descending branch. Right coronary has 30% stenosis rather diffuse throughout. The posterior descending branch has a 90% calcific stenosis in the prox to mid segment. The vessel distal to it is smaller caliber. Percutaneous intervention. Heparin was administered throughout the entire procedure to maintain appropriate anticoagulation. Left anterior descending coronary artery was selectively engaged with 6-Belgian XB LAD 3.5 guide catheter 0.014-180 cm [employer] run-through wire was navigated down to the distal left anterior descending coronary artery without difficulty. A 2.5 x 20 mm RX Medtronic balloon was advanced down the mid left anterior descending coronary deployed to 10 atmospheres. Repeat angiography still shows severe residual stenosis, 2.75 x 26 mm RX Resolute meli stent was advanced down the mid left anterior descending coronary artery and deployed to 14 atmospheres. Repeat angiography showed no residual stenosis, DEON III flow. The second diagonal branch, although diffusely diseased, remained patent. Wires removed. Guide catheter removed. Right common femoral angiography performed in for suitability for device closure. A 6-Belgian AngioSeal successfully deployed with good hemostasis. CONCLUSION 1. Severe mid-left anterior descending coronary and branch vessel disease. 2. Successful percutaneous intervention with drug-eluting stent to mid left anterior descending coronary artery. PLAN Monitor the patient closely for any post procedural complications. The patient be continued on his aspirin, Plavix, statin and beta bhavin therapy. The procedure was fairly straightforward, if he has no immediate post-procedural complications we may anticipate possible discharge later today. MD ADIEL Hinson/darnell /9:03 AM /9:12 AM MTDD
[2017-09-24] MEDS ORDERED: CLOPIDOGREL 75 MG TAB PO SCH (09:00)
--- NOTE | 2017-09-24 16:05 | EKG ---
Date Performed: 09/23/2017 Time Performed: 11:15:46 PTAGE: 82 years EKG: Sinus bradycardia with 1st degree A-V block. Low QRS voltages in precordial leads Abnormal ECG NO PREVIOUS TRACING DOCTOR: Esdras Serna Interpretating Date/Time 09/24/2017 16:03:50
== END 2017-09-23 15:10 | disposition home or self-care (01) ==
LOC: HDIC 06:19 → HDOC 06:19
PROVIDERS: ATTEND Internal Medicine
DX: I25.110 Atherosclerotic heart disease of native coronary artery with unstable angina pectoris (principal); I10 Essential (primary) hypertension; K21.9 Gastro-esophageal reflux disease without esophagitis; N28.9 Disorder of kidney and ureter, unspecified; Z87.891 Personal history of nicotine dependence; Z95.5 Presence of coronary angioplasty implant and graft; Z79.02 Long term (current) use of antithrombotics/antiplatelets; Z79.82 Long term (current) use of aspirin
CPT/HCPCS: 86850; 86900; 86901; 92928; 93005; 93454; 99152; 99153; C1725; C1760; C1769; C1874; C1887; C1893; G0269; J1644; J2250; J3010; J7030; Q9967

== ENCOUNTER 2017-11-03 10:26 | Emergency (ER) | payer MEDICARE, OTHER, BC ==
[~2017-11-03] VITALS: Ht 175.3 cm; Wt 110.0 kg
[~2017-11-03 10:26] MED LIST changes: -CLIN150C14 PO; +MULTTAB67 PO; +TUMS500C CHEW
[2017-11-03 10:34] VITALS: BP 172/77; PULSE 108; PULSE 63; RESP 17; TEMP 98.5; O2SAT 97
[2017-11-03] MEDS ORDERED: RANI150T PO (10:45)
[2017-11-03] MEDS ORDERED: LISI10TA3 PO (10:45)
[2017-11-03] MEDS ORDERED: SODIUM CHLORIDE 0.9% FLUSH 10 ML FLUSH IVF PRN (10:45)
--- NOTE | 2017-11-03 11:00 | PD ---
HPI Chief Complaint: Chest Pain Time Seen by Provider: 10:58 Travel History International Travel<30 days: No Contact w/Intl Traveler<30days: No Traveled to known affect area: No History of Present Illness HPI Patient is an 82-year-old male recent history of 2 stents to his department by Dr. valencia in September 2017 presents emergency department for evaluation continuing chest pain shortness of breath dizziness and epigastric pain. Patient states his been going to cardiac rehab and when he went today he states he was feeling very dizzy they took his blood pressure and it was low for him in the 100 range systolic so they sent him to the emergency department to be seen. He also states that his cardiac rehab therapist states that they do not know what is causing all of his chest pains they felt uncomfortable continuing his rehab. He attempted to get in touch with Dr. Valencia's office but they were unable to so they came into the emergency department. He states symptoms been going on for the past 3 weeks ever since he had his last stent placed, waxing and waning, center of his chest and the left side of his chest PFS Past Medical History Cancer: Yes (prostate) Cardiac Catheterization: Yes Cardiovascular Problems: No (cad, angina, previous stent, recent stemi) Diminished Hearing: Yes Gastrointestinal Disorders: Yes (gastic reflux) GERD: Yes Hypertension: Yes Respiratory: Yes (sleep apnea) Immunizations Current: Yes Myocardial Infarction: Yes Tetanus Vaccination: < 5 Years Influenza Vaccination: Yes ?: Not Past Surgical History Other Surgery: Yes (PANCREAS SX) Social History Alcohol Use: Yes (OCC) Tobacco Use: No (QUIT 1982) Substance Use: No Allergies-Medications (Allergen,Severity, Reaction): Coded Allergies: piperacillin (Verified Allergy, Unknown, 11/03/17) tazobactam (Verified Allergy, Unknown, 11/03/17) Reported Meds & Prescriptions Reported Meds & Active Scripts Active Tgt Aspirin (Aspirin) 81 Mg Chw 81 Mg PO DAILY 30 Days Plavix (Clopidogrel Bisulfate) 75 Mg Tab 75 Mg PO DAILY 30 Days Reported Ranitidine (Ranitidine HCl) 150 Mg Tab 150 Mg PO BID Lisinopril 10 Mg Tab 10 Mg PO DAILY Review of Systems Except as stated in HPI: all other systems reviewed are Neg Physical Exam Narrative GENERAL: Well-developed well-nourished no obvious distress peer SKIN: Focused skin assessment warm/dry. HEAD: Atraumatic. Normocephalic. EYES: Pupils equal and round. No scleral icterus. No injection or drainage. ENT: No nasal bleeding or discharge. Mucous membranes pink and moist. NECK: Trachea midline. No JVD. CARDIOVASCULAR: Regular rate and rhythm. No murmur appreciated. 2+ bilateral equal pulses in all 4 extremities, no reproducible chest pain. RESPIRATORY: No accessory muscle use. Clear to auscultation. Breath sounds equal bilaterally. GASTROINTESTINAL: Abdomen soft, non-tender, nondistended. Hepatic and splenic margins not palpable. MUSCULOSKELETAL: No obvious deformities. No clubbing. No cyanosis. No edema. NEUROLOGICAL: Awake and alert. No obvious cranial nerve deficits. Motor grossly within normal limits. Normal speech. PSYCHIATRIC: Appropriate mood and affect; insight and judgment normal. Data Data Last Documented VS Vital Signs Date Time Temp Pulse Resp B/P (MAP) Pulse Ox O2 Delivery O2 Flow Rate FiO2 11/03/17 14:01 11/03/17 13:52 54 16 96 Room Air 11/03/17 10:34 98.5 Orders Orders Ckmb (Isoenzyme) Profile (11/03/17 10:41) Complete Blood Count With Diff (11/03/17 10:41) Comprehensive Metabolic Panel (11/03/17 10:41) Magnesium (Mg) (11/03/17 10:41) Prothrombin Time / Inr (Pt) (11/03/17 10:41) Act Partial Throm Time (Ptt) (11/03/17 10:41) Troponin I (11/03/17 10:41) Lipase (11/03/17 10:41) Chest, Single Ap (11/03/17 10:41) Ecg Monitoring (11/03/17 10:41) Iv Access Insert/Monitor (11/03/17 10:41) Oximetry (11/03/17 10:41) Oxygen Administration (11/03/17 10:41) Sodium Chloride 0.9% Flush (Ns Flush) (11/03/17 10:45) Electrocardiogram (11/03/17 ) Troponin I (11/03/17 12:24) Ed Discharge Order (11/03/17 13:47) Labs Laboratory Tests Test 11/03/17 10:46 11/03/17 13:06 White Blood Count 5.4 TH/MM3 Red Blood Count 4.82 MIL/MM3 Hemoglobin 15.0 GM/DL Hematocrit 43.0 % Mean Corpuscular Volume 89.3 FL Mean Corpuscular Hemoglobin 31.1 PG Mean Corpuscular Hemoglobin Concent 34.8 % Red Cell Distribution Width 12.9 % Platelet Count 180 TH/MM3 Mean Platelet Volume 9.0 FL Neutrophils (%) (Auto) 57.7 % Lymphocytes (%) (Auto) 29.8 % Monocytes (%) (Auto) 8.4 % Eosinophils (%) (Auto) 3.6 % Basophils (%) (Auto) 0.5 % Neutrophils # (Auto) 3.1 TH/MM3 Lymphocytes # (Auto) 1.6 TH/MM3 Monocytes # (Auto) 0.5 TH/MM3 Eosinophils # (Auto) 0.2 TH/MM3 Basophils # (Auto) 0.0 TH/MM3 CBC Comment DIFF FINAL Differential Comment Prothrombin Time 10.1 SEC Prothromb Time International Ratio 1.0 RATIO Activated Partial Thromboplast Time 29.8 SEC Blood Urea Nitrogen 18 MG/DL Creatinine 1.25 MG/DL Random Glucose 80 MG/DL Total Protein 7.6 GM/DL Albumin 4.1 GM/DL Calcium Level 9.0 MG/DL Magnesium Level 2.1 MG/DL Alkaline Phosphatase 62 U/L Aspartate Amino Transf (AST/SGOT) 16 U/L Alanine Aminotransferase (ALT/SGPT) 25 U/L Total Bilirubin 0.5 MG/DL Sodium Level 140 MEQ/L Potassium Level 4.3 MEQ/L Chloride Level 109 MEQ/L Carbon Dioxide Level 25.2 MEQ/L Anion Gap 6 MEQ/L Estimat Glomerular Filtration Rate 55 ML/MIN Total Creatine Kinase 64 U/L Troponin I LESS THAN 0.02 NG/ML LESS THAN 0.02 NG/ML Lipase 94 U/L MDM Medical Decision Making Medical Screen Exam Complete: Yes Emergency Medical Condition: Yes Differential Diagnosis ACS, ME, GERD, peptic ulcer disease, hiatal hernia, pneumonia, chest wall pain, pericarditis. Narrative Course Patient was room to the emergency department, he appears quite well in no obvious distress, troponin negative 2, EKG shows no signs of ischemia. He has had recent placement of stents. Ultimately was discussed with Dr. valencia, he thinks the patient's pain is somewhat chronic and unlikely due to his coronary artery disease. He has had multiple presentations to the office for similar. At this time Dr. valencia would like to follow him up as an outpatient and arrange for a nuclear stress test this week. I think this is an appropriate action for him at this time. I had a lengthy discussion with the patient regarding his recommendations and he is concerned that his Plavix may actually be causing his pain. I informed him that he is absolutely to not stop taking his Plavix as this is keeping his stents open. He then stated that maybe it is the lisinopril that may be causing his symptoms, Dr. Garcia has agreed that if he is having morning weakness that he may cut this in half but I informed him that Dr. Valencia's recommendations did not include stopping altogether and I did not recommend stopping this either. Ultimately patient is agreeable to going home and following up with Dr. valencia. Discussed return to ED criteria. Diagnosis Primary Impression: Chest pain Additional Instructions: Follow up with Dr. Valencia by phone this afternoon, he will make an appointment for you for a stress test. Disposition: 01 DISCHARGE HOME Condition: Stable Varun Irwin MD Nov 03, 2017 11:00
[2017-11-03 11:10] LABS: AUTOMATED NEUTROPHIL # 3.1 TH/MM3 (1.8-7.7); BASOPHIL % 0.5 % (0.0-2.0); EOSINOPHIL # 0.2 TH/MM3 (0-0.4); EOSINOPHIL % 3.6 % (0.0-4.0); LYMPH % 29.8 % (9.0-44.0); LYMPHOCYTE # 1.6 TH/MM3 (1.0-4.8); MEAN CELL VOLUME 89.3 FL (80.0-100.0); MEAN CORPUSCULAR HEMOGLOBIN 31.1 PG (27.0-34.0); MEAN CORPUSCULAR HGB CONC 34.8 % (32.0-36.0); MONO % 8.4 % (0.0-8.0); MONOCYTE # 0.5 TH/MM3 (0-0.9); NEUT % 57.7 % (16.0-70.0); PLATELET COUNT 180 TH/MM3 (150-450); RED BLOOD COUNT 4.82 MIL/MM3 (4.50-5.90); RED CELL DISTRIBUTION WIDTH 12.9 % (11.6-17.2); WHITE BLOOD COUNT 5.4 TH/MM3 (4.0-11.0)
[2017-11-03 11:21] LABS: PROTHROMBIN TIME - PATIENT 10.1 SEC (9.8-11.6)
[2017-11-03 11:36] LABS: ALBUMIN 4.1 GM/DL (3.4-5.0); AST (GOT) 16 U/L (15-37); BICARBONATE 25.2 MEQ/L (21.0-32.0); BLOOD UREA NITROGEN 18 MG/DL (7-18); CHLORIDE 109 MEQ/L (98-107); CREATININE 1.25 MG/DL (0.60-1.30); GLOMERULAR FILTRATION RATE 55 ML/MIN (>89); GLUCOSE,RANDOM 80 MG/DL (74-106); MAGNESIUM 2.1 MG/DL (1.5-2.5); SODIUM (NA) 140 MEQ/L (136-145)
[2017-11-03 11:37] LABS: ALT (GPT) 25 U/L (12-78)
[2017-11-03 11:41] LABS: ALKALINE PHOSPHATASE 62 U/L (45-117); TOTAL BILIRUBIN ADULT 0.5 MG/DL (0.2-1.0); TOTAL PROTEIN 7.6 GM/DL (6.4-8.2); TROPONIN I LESS THAN 0.02 NG/ML (0.02-0.05)
--- NOTE | 2017-11-03 11:44 | RADRPT ---
EXAM DATE/TIME: 11/03/2017 10:57 [facility] COMPARISON: CHEST SINGLE AP, September 04, 2017, 8:24. INDICATIONS : Chest pain since this morning. MEDICAL HISTORY : Gastroesophageal reflux disease. SURGICAL HISTORY : Coronary artery stent. Total knee replacement, left. Total knee replacement, right ENCOUNTER: Initial ACUITY: 1 day PAIN SCORE: 6/10 LOCATION: chest Center FINDINGS: A single view of the chest demonstrates the lungs to be symmetrically aerated without evidence of mas s, infiltrate or effusion. No evidence of pneumothorax. The cardiomediastinal contours are unremark able. Osseous structures are intact. CONCLUSION: The lungs are clear. Boone Alcantar MD on November 03, 2017 at 11:41 Board Certified Radiologist. This report was verified electronically.
[2017-11-03 13:52] VITALS: BP 145/76; PULSE 54; RESP 16; O2SAT 96
--- NOTE | 2017-11-04 17:31 | EKG ---
Date Performed: 11/03/2017 Time Performed: 10:34:11 PTAGE: 82 years EKG: Sinus rhythm WITH FIRST DEGREE AV BLOCK Since previous tracing, no significant change noted ABNORMAL ECG PREVIOUS TRACING : 09/23/2017 11.15.46 DOCTOR: Juve Colon Interpretating Date/Time 11/04/2017 17:29:04
== END 2017-11-03 14:05 | disposition home or self-care (01) ==
LOC: NEPC 10:26
DX: R07.9 Chest pain, unspecified (principal); I10 Essential (primary) hypertension; I25.10 Atherosclerotic heart disease of native coronary artery without angina pectoris; I25.2 Old myocardial infarction; K21.9 Gastro-esophageal reflux disease without esophagitis; Z79.899 Other long term (current) drug therapy; Z87.891 Personal history of nicotine dependence
CPT/HCPCS: 71045; 80053; 82550; 83690; 83735; 84484; 85025; 85610; 85730; 93005